=== PATIENT | female | born 1965 | race Caucasian/White ===

== ENCOUNTER → 2017-04-02 | Outpatient (CLI) | payer MEDICARE ==
--- NOTE | 2017-04-02 16:58 | RADIOLOGY REPORT (SQ) ---
EXAM DESCRIPTION: KNEE LEFT 3 VIEWS COMPLETED DATE/TIME: 04/02/2017 4:49 pm REASON FOR STUDY: PAIN IN LEFT KNEE M25.511 PAIN IN RIGHT SHOULDER M54.5 LOW BACK PAIN M25.562 PA IN IN LEFT KNEE COMPARISON: None. NUMBER OF VIEWS: Three views. TECHNIQUE: AP, lateral, and sunrise patella radiographic images acquired of the left knee. LIMITATIONS: None. FINDINGS: MINERALIZATION: Normal. BONES: No acute fracture or dislocation. No worrisome bone lesions. No significant osteophytes. JOINT: No effusion. No chondrocalcinosis. OTHER: No other significant finding. IMPRESSION: NEGATIVE STUDY OF THE LEFT KNEE. NO EXPLANATION FOR PAIN. TECHNICAL DOCUMENTATION: JOB ID: [id number] [employer]- All Rights Reserved
--- NOTE | 2017-04-02 16:58 | RADIOLOGY REPORT (SQ) ---
EXAM DESCRIPTION: KNEE RIGHT 3 VIEWS COMPLETED DATE/TIME: 04/02/2017 4:49 pm REASON FOR STUDY: PAIN IN RIGHT KNEE M25.511 PAIN IN RIGHT SHOULDER M54.5 LOW BACK PAIN M25.562 P AIN IN LEFT KNEE COMPARISON: None. NUMBER OF VIEWS: Three views. TECHNIQUE: AP, lateral, and sunrise patella radiographic images acquired of the right knee. LIMITATIONS: None. FINDINGS: MINERALIZATION: Normal. BONES: No acute fracture or dislocation. No worrisome bone lesions. No significant osteophytes. JOINT: No effusion. No chondrocalcinosis. OTHER: No other significant finding. IMPRESSION: NEGATIVE STUDY OF THE RIGHT KNEE. NO EXPLANATION FOR PAIN. TECHNICAL DOCUMENTATION: JOB ID: [id number] [employer]- All Rights Reserved
--- NOTE | 2017-04-02 16:59 | RADIOLOGY REPORT (SQ) ---
EXAM DESCRIPTION: LUMBAR SPINE COMPLETE COMPLETED DATE/TIME: 04/02/2017 4:49 pm REASON FOR STUDY: LOW BACK PAIN M25.511 PAIN IN RIGHT SHOULDER M54.5 LOW BACK PAIN M25.562 PAIN I N LEFT KNEE COMPARISON: 12/17/2013. NUMBER OF VIEWS: Five views including obliques. TECHNIQUE: AP, lateral, oblique, and sacral radiographic images acquired of the lumbar spine. LIMITATIONS: None. FINDINGS: MINERALIZATION: Normal. SEGMENTATION: Normal. No transitional anatomy. ALIGNMENT: Normal. VERTEBRAE: Maintained height. No fracture or worrisome bone lesion. DISCS: Preserved height. No significant osteophytes or end plate irregularity. POSTERIOR ELEMENTS: Pedicles and facets are intact. No pars defect or posterior arch defects. HARDWARE: None in the spine. PARASPINAL SOFT TISSUES: Normal. PELVIS: Intact as visualized. No fractures or worrisome bone lesions. SI joints intact. OTHER: No other significant finding. IMPRESSION: NORMAL 5 VIEW LUMBAR SPINE. TECHNICAL DOCUMENTATION: JOB ID: [id number] [employer]- All Rights Reserved
--- NOTE | 2017-04-02 17:00 | RADIOLOGY REPORT (SQ) ---
EXAM DESCRIPTION: SHOULDER RIGHT 2 OR MORE VIEWS COMPLETED DATE/TIME: 04/02/2017 4:49 pm REASON FOR STUDY: PAIN IN RIGHT SHOULDER M25.511 PAIN IN RIGHT SHOULDER M54.5 LOW BACK PAIN M25.56 2 PAIN IN LEFT KNEE COMPARISON: None. NUMBER OF VIEWS: Three views. TECHNIQUE: Internal rotation, external rotation, and Y view images acquired of the right shoulder. LIMITATIONS: None. FINDINGS: MINERALIZATION: Normal. BONES: No acute fracture or dislocation. No worrisome bone lesions. No significant osteophytes. GLENOHUMERAL JOINT: No significant findings. ACROMIOCLAVICULAR JOINT: No large osteophytes. SOFT TISSUES: No calcifications. VISUALIZED RIBS, SPINE, AND LUNG: No other significant finding. OTHER: No other significant finding. IMPRESSION: NEGATIVE STUDY OF THE RIGHT SHOULDER. NO EXPLANATION FOR PAIN. TECHNICAL DOCUMENTATION: JOB ID: [id number] [employer]- All Rights Reserved
== END ==
LOC: OD 15:15
PROVIDERS: ATTEND Nurse Practitioner
DX: M25.511 Pain in right shoulder (principal); M54.5 Low back pain; M25.562 Pain in left knee; M25.561 Pain in right knee
CPT/HCPCS: 72110

== ENCOUNTER 2020-04-27 18:46 | Inpatient (IN) | payer MEDICARE, MEDICAID ==
[2020-04-27] MEDS ORDERED: CLINDAMYCIN 900 MG/D5W RTU 900 MG/50 ML RTUPB IV ONE (21:40)
--- NOTE | 2020-04-27 21:45 | ER Document Report ---
ED Extremity Problem, Lower - General Chief Complaint: Skin Problem Stated Complaint: FALL/LEG PAIN Time Seen by Provider: 04/27/20 21:30 Primary Care Provider: JAQUAN AGARWAL DO [Primary Care Provider] - Follow up as needed Mode of Arrival: Wheelchair Information source: Patient Notes: Patient is a 55-year-old female comes emergency room complaining of right lower extremity pain. Patient states this past Friday she fell in the morning about 730 by tripping. She has had some difficulty walking since then but seemed to get along okay until about Friday when the foot started to swell and she noticed redness and warmth to the lower extremity. She attempted to get in to see Dr. Agarwal but he was not in that day. Patient thought that it would get better on its own but instead is only gotten worse. 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 Patient states that the swelling is gotten worse also over the past 24 hours. She denies any shortness of breath nausea or vomiting. Physical exam: Patient is a well-nourished well-developed morbidly obese 55-year-old female no apparent distress on examination however she is uncomfortable appearing and in obvious pain. Cardiac: Patient displays tachycardic rate with no murmurs. Rates approximately 104 bpm. Lungs: Bilateral breath sounds decreased throughout no rhonchi rales or wheeze noted. Lower extremities right lower extremity examination shows to be moderately swollen as compared to the left on visualization. Further evaluation shows it to be extremely red warm to touch with pain and discomfort on the dorsum of the foot and then the lateral medial malleoli are areas as well as the posterior gastroc. It appears to be circumferentially swollen. The redness and erythema is also circumferential. She does display good pulses on the area. Good cap refill in nailbeds of the toes on the right foot. Patient has difficult time with bearing weight on the right side. There is no sign of a deformity on visualization. I have greeted and performed a rapid initial assessment of this patient. A comprehensive ED assessment and evaluation of the patient, analysis of test results and completion of the medical decision making process will be conducted by additional ED providers. Dictation of this chart was performed using voice recognition software; therefore, there may be some unintended grammatical errors. TRAVEL OUTSIDE OF THE [place] IN LAST 30 DAYS: No - Related Data Allergies/Adverse Reactions: No Known Allergies Allergy (Verified 12/22/14 13:58) Past Medical History - Social History Smoking Status: Never Smoker Family History: None Patient has homicidal ideation: No - Past Medical History Cardiac Medical History: Reports: Hx Hypertension Denies: Hx Coronary Artery Disease, Hx Heart Attack Pulmonary Medical History: Reports: Hx Bronchitis, Hx Pneumonia Denies: Hx Asthma, Hx COPD Neurological Medical History: Denies: Hx Cerebrovascular Accident, Hx Seizures Musculoskeletal Medical History: Denies Hx Arthritis Psychiatric Medical History: Reports: Hx Depression Past Surgical History: Reports: Hx Section, Hx Cholecystectomy. Denies: Hx Hysterectomy - Immunizations Hx Diphtheria, Pertussis, Tetanus Vaccination: No - unsure Hx Pneumococcal Vaccination: 06/21/14 Physical Exam - Vital signs Vitals: Temp Pulse Resp BP Pulse Ox 98.0 F 102 H 20 150/87 H 99 04/27/20 18:51 04/27/20 18:51 04/27/20 18:51 04/27/20 18:51 04/27/20 18:51 Course - Vital Signs Vital signs: Temp Pulse Resp BP Pulse Ox 98.0 F 102 H 20 150/87 H 99 04/27/20 18:51 04/27/20 18:51 04/27/20 18:51 04/27/20 18:51 04/27/20 18:51 Discharge - Discharge Referrals: JAQUAN AGARWAL DO [Primary Care Provider] - Follow up as needed
--- NOTE | 2020-04-27 21:47 | ER Document Report ---
ED Medical Screen (RME) - General Chief Complaint: Skin Problem Stated Complaint: FALL/LEG PAIN Time Seen by Provider: 04/27/20 21:30 Primary Care Provider: JAQUAN AGARWAL DO [Primary Care Provider] - Follow up as needed Notes: Patient is a 55-year-old female comes emergency room complaining of right lower extremity pain. Patient states this past Friday she fell in the morning about 730 by tripping. She has had some difficulty walking since then but seemed to get along okay until about Friday when the foot started to swell and she noticed redness and warmth to the lower extremity. She attempted to get in to see Dr. Agarwal but he was not in that day. Patient thought that it would get better on its own but instead is only gotten worse. 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 Patient states that the swelling is gotten worse also over the past 24 hours. She denies any shortness of breath nausea or vomiting. Physical exam: Patient is a well-nourished well-developed morbidly obese 55-year-old female no apparent distress on examination however she is uncomfortable appearing and in obvious pain. Cardiac: Patient displays tachycardic rate with no murmurs. Rates approximately 104 bpm. Lungs: Bilateral breath sounds decreased throughout no rhonchi rales or wheeze noted. Lower extremities right lower extremity examination shows to be moderately swollen as compared to the left on visualization. Further evaluation shows it to be extremely red warm to touch with pain and discomfort on the dorsum of the foot and then the lateral medial malleoli are areas as well as the posterior gastroc. It appears to be circumferentially swollen. The redness and erythema is also circumferential. She does display good pulses on the area. Good cap refill in nailbeds of the toes on the right foot. Patient has difficult time with bearing weight on the right side. There is no sign of a deformity on visualization. I have greeted and performed a rapid initial assessment of this patient. A comprehensive ED assessment and evaluation of the patient, analysis of test results and completion of the medical decision making process will be conducted by additional ED providers. Dictation of this chart was performed using voice recognition software; therefore, there may be some unintended grammatical errors . TRAVEL OUTSIDE OF THE [place] IN LAST 30 DAYS: No - Related Data Allergies/Adverse Reactions: No Known Allergies Allergy (Verified 12/22/14 13:58) Past Medical History - Past Medical History Cardiac Medical History: Reports: Hx Hypertension Denies: Hx Coronary Artery Disease, Hx Heart Attack Pulmonary Medical History: Reports: Hx Bronchitis, Hx Pneumonia Denies: Hx Asthma, Hx COPD Neurological Medical History: Denies: Hx Cerebrovascular Accident, Hx Seizures Musculoskeltal Medical History: Denies Hx Arthritis Psychiatric Medical History: Reports: Hx Depression Past Surgical History: Reports: Hx Section, Hx Cholecystectomy. Denies: Hx Hysterectomy - Immunizations Hx Diphtheria, Pertussis, Tetanus Vaccination: No - unsure Physical Exam - Vital signs Vitals: Temp Pulse Resp BP Pulse Ox 98.0 F 102 H 20 150/87 H 99 04/27/20 18:51 04/27/20 18:51 04/27/20 18:51 04/27/20 18:51 04/27/20 18:51 Course - Vital Signs Vital signs: Temp Pulse Resp BP Pulse Ox 98.0 F 102 H 20 150/87 H 99 04/27/20 18:51 04/27/20 18:51 04/27/20 18:51 04/27/20 18:51 04/27/20 18:51 Doctor's Discharge - Discharge Referrals: JAQUAN AGARWAL DO [Primary Care Provider] - Follow up as needed
--- NOTE | 2020-04-27 22:32 | RADIOLOGY REPORT (SQ) ---
EXAM DESCRIPTION: XR ANKLE 3 OR MORE VIEWS COMPLETED DATE/TME: 04/27/2020 21:39 CLINICAL HISTORY: 55 years, Female, Fall COMPARISON: None. NUMBER OF VIEWS: 3 TECHNIQUE: 3 views right ankle LIMITATIONS: None. FINDINGS: Diffuse soft tissue swelling. Negative for acute fracture or dislocation. Calcaneal spurs. Ankle mortise is intact IMPRESSION: No acute osseous abnormality. copyright 2010 [employer]- All Rights Reserved
--- NOTE | 2020-04-27 22:33 | RADIOLOGY REPORT (SQ) ---
EXAM DESCRIPTION: XR TIBIA FIBULA 2 VIEWS COMPLETED DATE/TME: 04/27/2020 21:39 CLINICAL HISTORY: 55 years, Female, Fall COMPARISON: None. NUMBER OF VIEWS: 2 TECHNIQUE: 2 views right tibia-fibula LIMITATIONS: None. FINDINGS: Osteopenia. Negative for acute fracture or dislocation. IMPRESSION: No acute osseous abnormality copyright 2010 [employer]- All Rights Reserved
--- NOTE | 2020-04-27 22:46 | RADIOLOGY REPORT (SQ) ---
EXAM DESCRIPTION: XR FOOT 3 OR MORE VIEWS COMPLETED DATE/TME: 04/27/2020 21:38 CLINICAL HISTORY: 55 years ,Female fall/swelling COMPARISON: None. TECHNIQUE: RIGHT foot, Three view FINDINGS: No acute fractures or dislocations are identified. No osseous destructive lesions. No radiopaque foreign object noted. No significant ankle effusion noted. Soft tissue swelling over the forefoot. IMPRESSION: No acute fracture or dislocation is identified. Soft tissue swelling over the forefoot
--- NOTE | 2020-04-27 23:17 | RADIOLOGY REPORT (SQ) ---
EXAM DESCRIPTION: US EXTREMITY VEINS UNILATERAL COMPLETED DATE/TME: 04/27/2020 21:37 CLINICAL HISTORY: Swelling/positive Homans COMPARISON: None. TECHNIQUE: Grayscale, color Doppler, and spectral Doppler imaging of the right lower extremity venous system. Suboptimal evaluation due to body habitus and edema. FINDINGS: Normal compressibility and flow identified in the right common femoral, superficial femoral, popliteal, and visualized calf veins. No echogenic thrombus identified. Mild subcutaneous edema. Respiratory phasicity in the common femoral veins. IMPRESSION: No evidence of right lower extremity DVT.
[2020-04-28 00:37] LABS: ABSOLUTE BASOPHILS # (AUTO) 0.1 10^3/uL (0.0-0.2); ABSOLUTE EOSINOPHILS # (AUTO) 0.1 10^3/uL (0.0-0.6); ABSOLUTE LYMPHOCYTES (AUTO) 1.8 10^3/uL (0.5-4.7); ABSOLUTE MONOCYTES (AUTO) 0.8 10^3/uL (0.1-1.4); ABSOLUTE NEUT (AUTO) 7.2 10^3/uL (1.7-8.2); BASOPHILS % (AUTO) 0.6 % (0-2); EOSINOPHILS % (AUTO) 0.6 % (0-6); HEMATOCRIT 41.4 % (36.0-47.0); HEMOGLOBIN 14.3 g/dL (12.0-15.5); LYMPHOCYTES % (AUTO) 18.4 % (13-45); MEAN CORPUSCULAR HEMOGLOBIN 31.7 pg (27.0-33.4); MEAN CORPUSCULAR HGB CONC 34.6 g/dL (32.0-36.0); MEAN CORPUSCULAR VOLUME 92 fl (80-97); MONOCYTES % (AUTO) 8.3 % (3-13); PLATELET COUNT 327 10^3/uL (150-450); RED BLOOD COUNT 4.52 10^6/uL (3.72-5.28); RED CELL DISTRIBUTION WIDTH 14.7 % (11.5-14.0); SEGMENTED NEUTROPHILS % (AUTO) 72.1 % (42-78); TOTAL CELLS COUNTED % (AUTO) 100 %
[2020-04-28 00:47] LABS: ALBUMIN 4.2 g/dL (3.5-5.0); ALKALINE PHOSPHATASE 129 U/L (38-126); ANION GAP 19 (5-19); ASPARTATE AMINO TRANSFERASE 38 U/L (14-36); BILIRUBIN,DIRECT 0.1 mg/dL (0.0-0.4); BILIRUBIN,TOTAL 1.5 mg/dL (0.2-1.3); BLOOD UREA NITROGEN 9 mg/dL (7-20); CALCIUM 9.7 mg/dL (8.4-10.2); CARBON DIOXIDE 17 mmol/L (22-30); CHLORIDE 101 mmol/L (98-107); GLUCOSE 204 mg/dL (75-110); POTASSIUM 3.4 mmol/L (3.6-5.0); TOTAL PROTEIN 7.4 g/dL (6.3-8.2)
[2020-04-28] MEDS ORDERED: NORMAL SALINE 1000 ML 1,000 ML IV ONE (02:55)
[2020-04-28] MEDS ORDERED: IBUPROFEN 800 MG TABLET PO ONE (02:56)
--- NOTE | 2020-04-28 03:01 | ER Document Report ---
ED Extremity Problem, Lower - General Chief Complaint: Skin Problem Stated Complaint: FALL/LEG PAIN Time Seen by Provider: 04/27/20 21:30 Notes: Patient is a 55-year-old female that comes emergency department for chief complaint of right lower leg pain. She states that about 6 days ago she fell on her right side because of tripping, she had bruising along the side of her leg and pain afterwards, however approximately 3 days ago she started having increased swelling, redness, and pain to her right foot and right leg near the ankle. She states that this has worsened and now has developed into what looks like cellulitis, she has had cellulitis several times in the past. She states that she did have Keflex called in for her by Primary Care and she has been taking it for the past 2 to 3 days. She states she had some sweating earlier a nd thought maybe she had a fever. Her temperature was reportedly 38 C (100.4 F). She does have a history of diabetes, obesity, neuropathy. TRAVEL OUTSIDE OF THE [place] IN LAST 30 DAYS: No - Related Data Allergies/Adverse Reactions: No Known Allergies Allergy (Verified 12/22/14 13:58) Past Medical History - General Information source: Patient - Social History Smoking Status: Never Smoker Drug Abuse: None Lives with: Family Family History: None Patient has homicidal ideation: No - Past Medical History Cardiac Medical History: Reports: Hx Hypertension Denies: Hx Coronary Artery Disease, Hx Heart Attack Pulmonary Medical History: Reports: Hx Bronchitis, Hx Pneumonia Denies: Hx Asthma, Hx COPD Neurological Medical History: Denies: Hx Cerebrovascular Accident, Hx Seizures Endocrine Medical History: Reports: Hx Diabetes Mellitus Type 2 Musculoskeletal Medical History: Denies Hx Arthritis Psychiatric Medical History: Reports: Hx Depression Past Surgical History: Reports: Hx Section, Hx Cholecystectomy. Denies: Hx Hysterectomy - Immunizations Immunizations up to date: Yes Hx Diphtheria, Pertussis, Tetanus Vaccination: Yes Hx Pneumococcal Vaccination: 06/21/14 Review of Systems - Review of Systems Constitutional: See HPI EENT: No symptoms reported Cardiovascular: No symptoms reported Respiratory: No symptoms reported Gastrointestinal: No symptoms reported Genitourinary: No symptoms reported Female Genitourinary: No symptoms reported Musculoskeletal: See HPI Skin: See HPI Hematologic/Lymphatic: No symptoms reported Neurological/Psychological: No symptoms reported Physical Exam - Vital signs Vitals: Temp Pulse Resp BP Pulse Ox 98.0 F 102 H 20 150/87 H 99 04/27/20 18:51 04/27/20 18:51 04/27/20 18:51 04/27/20 18:51 04/27/20 18:51 - Notes Notes: GENERAL: Alert, interacts well. No acute distress. HEAD: Normocephalic, atraumatic. EYES: Pupils equal, round, and reactive to light. Extraocular movements intact. ENT: Oral mucosa dry, tongue midline. Oropharynx unremarkable. Airway patent. NECK: Full range of motion. Supple. Trachea midline. No lymphadenopathy. LUNGS: Clear to auscultation bilaterally, no wheezes, rales, or rhonchi. No respiratory distress. Non-tender chest wall. HEART: Regular rate and rhythm. No murmur ABDOMEN: Soft, non-tender. Non-distended. EXTREMITIES: Ecchymosis over the right mid to distal thigh laterally. Soft tissue swelling of the distal leg and ankle extending to the top of the foot with erythema that is circumferential and patchy erythematous areas above this on the distal leg. Increased tenderness and warmth noted. Capillary refill and sensation are intact. BACK: no cervical, thoracic, lumbar midline tenderness. No saddle anesthesia, normal distal neurovascular exam. Moves all extremities in full range of motion. NEUROLOGICAL: Alert and oriented x3. Normal speech. Cranial nerves II through XII grossly intact. Strength 5/5 in all extremities. PSYCH: Intermittently anxious SKIN: Warm, dry, normal turgor. No rashes or lesions noted. Course - Re-evaluation Re-evalutation: Patient with ecchymosis along the lateral aspect of the right leg. There is sw elling, erythema, warmth, tenderness to the right foot and lower leg. Part of this appears to almost be a vasculitis versus posttraumatic but there also appears to be a significant cellulitis component. Patient has a reported fever at home but no fever here. She was borderline tachycardic but is not significantly tachycardic on my exam. She is not toxic in appearance. CBC unremarkable, chemistry nonspecific with some acidosis and elevated glucose but normal anion gap. IV fluids will be given. Lactic acid is not elevated. X-rays and venous Doppler ultrasound from triage reviewed and unremarkable except for soft tissue swelling. We had a large amount of difficulty obtaining IV access, patient was stuck multiple times. I attempted with an ultrasound, the first 1 rapidly infiltrated, the second 1 was good with excellent flush and blood is easily obtained from this. Antibiotics were significantly delayed but finally started. I discussed with patient. Patient initially discussing going home, however patient attempted to ambulate and was able not able to do so because of signi ficant pain. Patient is now uncomfortable going home. Patient does have reported failure with outpatient antibiotic (Keflex), obesity, recent travel, probable hematoma in the right leg, and insulin-dependent type 2 diabetes. Will discuss with hospitalist for admission. Discussed with Dr. Martin, hospitalist, patient will be accepted to medical floor full admission, he will tell the next provider/hospitalist about them because of the current time on the phone. - Vital Signs Vital signs: Temp Pulse Resp BP Pulse Ox 98.0 F 100 20 116/55 L 99 04/28/20 04:46 04/28/20 04:46 04/28/20 04:46 04/28/20 04:46 04/28/20 04:46 - Laboratory Result Diagrams: 04/28/20 00:07 04/28/20 00:07 Laboratory results interpreted by me: 04/28/20 04/28/20 00:07 00:07 RDW 14.7 H Sodium 136.5 L Potassium 3.4 L Carbon Dioxide 17 L Creatinine 0.48 L Glucose 204 H Total Bilirubin 1.5 H AST 38 H Alkaline Phosphatase 129 H Discharge - Discharge Clinical Impression: Right leg swelling Cellulitis Qualifiers: Site of cellulitis: extremity Site of cellulitis of extremity: lower extremity Laterality: right Qualified Code(s): L03.115 - Cellulitis of right lower limb Condition: Stable Disposition: ADMITTED INPATIENT Admitting Provider: Mario (Hospitalist) Unit Admitted: Medical Floor
[2020-04-28] MEDS ORDERED: CLINDAMYCIN 900 MG/D5W RTU 900 MG/50 ML RTUPB IV ONE (03:45)
[2020-04-28] MEDS ORDERED: VANCOMYCIN HCL INJ 1000 MG VIAL IV ONE (05:19)
[2020-04-28] MEDS ORDERED: CEFEPIME 2 GM/D5W RTU 2 GM/50 ML RTUPB IV ONE (05:19)
[2020-04-28] MEDS ORDERED: MAG HYDROX/AL HYDROX/SIMETH SUSP 30 ML UDCUP PO PRN (06:19)
[2020-04-28] MEDS ORDERED: ONDANSETRON HCL INJ/PF 4 MG/2 ML SDV IV PRN (06:19)
[2020-04-28] MEDS ORDERED: MORPHINE SULFATE 10 MG/ML INJ IV PRN (06:24)
[2020-04-28] MEDS ORDERED: ACETAMINOPHEN 325 MG TABLET PO PRN (06:24)
[2020-04-28] MEDS ORDERED: LORAZEPAM INJ 2 MG/1 ML VIAL IV PRN (06:24)
[2020-04-28] MEDS ORDERED: MELATONIN 5 MG TABLET PO PRN (06:24)
[2020-04-28] MEDS ORDERED: HYDRALAZINE HCL INJ/PF 20 MG/1 ML SDV IV PRN (06:24)
[2020-04-28] MEDS ORDERED: NICOTINE 21 MG/24 HR PATCH.TD24 TD PRN (06:24)
[2020-04-28] MEDS ORDERED: METOPROLOL TARTRATE PF/INJ 5 MG/5 ML SDV IV PRN (06:24)
[2020-04-28] MEDS ORDERED: GUAIFENESIN SYRP 200 MG/10 ML UDC PO PRN (06:24)
[2020-04-28] MEDS ORDERED: DEXTROSE 50%-WATER 25 GM/50 ML DISP.SYRIN IV PRN ×2 (06:25)
[2020-04-28] MEDS ORDERED: GLUCAGON,HUMAN RECOMB 1 MG INJ IM PRN (06:25)
[2020-04-28] MEDS ORDERED: DEXTROSE 40% GEL 15 GM TUBE PO PRN ×2 (06:25)
[2020-04-28] MEDS ORDERED: LEVALBUTEROL HCL NEB 0.63 MG/3 ML AMPUL NEB PRN (06:26)
[2020-04-28] MEDS ORDERED: VANCOMYCIN HCL INJ 1000 MG VIAL IV SCH (06:30)
--- NOTE | 2020-04-28 06:47 | PDOC H&P ---
History of Present Illness Admission Date/PCP: 04/28/2020 06:30 JAQUAN COOPER DO Patient complains of: Right lower extremity pain History of Present Illness: EDEN CM is a 55 year old female who presented the emergency room with a one-week history of pain in her right lower extremity. She experienced a fall after tripping and bruised the right side of her leg 1 week ago. 3 days later she noted redness and swelling with pain to touch involving her right ankle, worsened by movement of her right lower leg and foot. The redness and swelling have continued to increase over the last 3 days and have become more painful. She was treated with oral Keflex by her primary care provider without improvement. Her right lower extremity pain has been accompanied by a low-grade fever at home and has been associated with episodic diaphoresis. She admits prior similar episodes. She has not identified any additional aggravating or ameliorating factors for her pain. In the emergency room she was found to have an essentially unremarkable laboratory evaluation however clinically she showed evidence of cellulitis and she is unable to bear weight on her right lower extremity and has no one to help her at home. Patient was subsequently admitted to the hospital for further evaluation and treatment. Past Medical History Cardiac Medical History: Reports: Hypertension Denies: Coronary Artery Disease, Myocardial Infarction Pulmonary Medical History: Reports: Asthma, Bronchitis, Pneumonia, Sleep Apnea - Obstructive sleep apnea Denies: Chronic Obstructive Pulmonary Disease (COPD) EENT Medical History: Reports: Nose - Allergic rhinitis Denies: Cataracts, Ears - Hearing aids Neurological Medical History: Denies: Hemorrhagic CVA, Ischemic CVA, Seizures Endocrine Medical History: Reports: Diabetes Mellitus Type 2, Hypothyroidism, Obesity Denies: Diabetes Mellitus Type 1, Hyperthyroidism Renal/ Medical History: Reports: Other - Polycystic ovarian syndrome Denies: Chronic Kidney Disease, Nephrolithiasis Malignancy Medical History: Reports: None GI Medical History: Denies: Cirrhosis, Hepatitis, Peptic Ulcer Disease Musculoskeltal Medical History: Denies: Arthritis, Gout Skin Medical History: Reports: Other - Frequent cellulitis of the lower extremities Denies: Eczema, Psoriasis Psychiatric Medical History: Reports: Depression Denies: Alcohol Dependency, Substance Abuse, Tobacco Dependency Traumatic Medical History: Reports: None Hematology: Reports: Anemia - Chronic Denies: Bleeding Tendencies Infectious Medical History: Reports: None Past Surgical History Past Surgical History: Reports: Section, Cholecystectomy Social History Information Source: Patient Lives with: Alone Smoking Status: Never Smoker Electronic Cigarette use?: No Frequency of Alcohol Use: None Hx Recreational Drug Use: No Drugs: None Hx Prescription Drug Abuse: No - Advance Directive Resuscitation Status: Full Code Surrogate healthcare decision maker:: Sourav Garcia Family History Family History: CVA, DM, Hypertension, Other - Asthma Parental Family History Reviewed: Yes Children Family History Reviewed: No Sibling(s) Family History Reviewed.: Yes Medication/Allergy Home Medications: Albuterol Sulfate [Albuterol Sulfate 2.5mg/3 mL] 1 vial IH PRN PRN 07/14/14 Esomeprazole Magnesium [Nexium] 40 mg PO DAILY 07/14/14 Fluticasone/Salmeterol [Advair 250-50 Diskus 14 Dose/Diskus] 1 inh IH DAILY 07/14/14 Amlodipine Besylate [Norvasc 10 mg Tablet] 10 mg PO DAILY 12/22/14 Bupropion HCl [Wellbutrin] 100 mg PO TID 12/22/14 Levothyroxine Sodium [Synthroid 0.025 mg Tablet] 25 mcg PO DAILY 12/22/14 Losartan/Hydrochlorothiazide [Hyzaar 100-25 Tablet] 1 each PO DAILY 12/22/14 Magnesium Hydroxide [Milk Of Magnesia] 1,200 mg PO BID #10 ml 01/07/15 Polyethylene Glycol 3350 [Miralax Powder 17 gm/Packet] 1 packet PO DAILY #7 pkg 01/07/15 Allergies/Adverse Reactions: No Known Allergies Allergy (Verified 12/22/14 13:58) Review of Systems Constitutional: PRESENT: as per HPI, fever(s). ABSENT: chills Eyes: ABSENT: visual disturbances, other - Eye pain Ears: ABSENT: hearing changes, other - Ear pain Nose, Mouth, and Throat: ABSENT: headache(s), sore throat Cardiovascular: ABSENT: chest pain, palpitations Respiratory: ABSENT: cough, dyspnea Gastrointestinal: ABSENT: abdominal pain, constipation, diarrhea, nausea, vomiting Genitourinary: ABSENT: dysuria, hematuria Musculoskeletal: ABSENT: back pain, joint swelling Integumentary: PRESENT: as per HPI, diaphoresis, erythema. ABSENT: pruritus, rash Neurological: ABSENT: confusion, convulsions, focal weakness, memory loss, syncope Psychiatric: ABSENT: anxiety, depression Endocrine: ABSENT: cold intolerance, heat intolerance Hematologic/Lymphatic: ABSENT: easy bleeding, easy bruising Allergic/Immunologic: ABSENT: seasonal rhinorrhea Physical Exam Vital Signs: Temp Pulse Resp BP Pulse Ox 98.0 F 100 20 116/55 L 99 04/28/20 04:46 04/28/20 04:46 04/28/20 04:46 04/28/20 04:46 04/28/20 04:46 Intake & Output 04/26/20 04/27/20 04/28/20 23:59 23:59 23:59 Weight 148.6 kg General appearance: PRESENT: cooperative, mild distress - Secondary to right lower extremity pain, morbidly obese Head exam: PRESENT: atraumatic, normocephalic Eye exam: PRESENT: conjunctiva pink. ABSENT: conjunctival injection, scleral icterus Ear exam: PRESENT: normal external ear exam. ABSENT: bleeding, drainage Mouth exam: PRESENT: dry mucosa, neck supple Neck exam: ABSENT: thyromegaly, tracheal deviation Respiratory exam: PRESENT: clear to auscultation nathaly, symmetrical, unlabored Cardiovascular exam: PRESENT: RRR. ABSENT: clicks, gallop, rubs Pulses: PRESENT: normal radial pulses, normal dorsalis pedis pul Vascular exam: PRESENT: normal capillary refill. ABSENT: pallor GI/Abdominal exam: PRESENT: normal bowel sounds, soft Rectal exam: PRESENT: deferred Extremities exam: PRESENT: tenderness - Erythema and edema with tenderness on palpation and increased warmth to touch of the right ankle extension to the foot and distal lower leg.. ABSENT: joint swelling, pedal edema Musculoskeletal exam: ABSENT: ambulatory - Secondary to pain, deformity, dislocation Neurological exam: PRESENT: alert, oriented to person, oriented to place, oriented to time, oriented to situation, CN II-XII grossly intact. ABSENT: motor sensory deficit Psychiatric exam: PRESENT: appropriate affect, normal mood Skin exam: PRESENT: dry, intact, warm, other - Erythema and edema with tenderness on palpation and increased warmth to touch of the right ankle extension to the foot and distal lower leg.. ABSENT: jaundice, rash, urticaria Results Laboratory Results: 04/28/20 00:07 04/28/20 00:07 04/28/20 04/28/20 04/28/20 00:07 00:07 00:07 WBC 10.0 RBC 4.52 Hgb 14.3 Hct 41.4 MCV 92 MCH 31.7 MCHC 34.6 RDW 14.7 H Plt Count 327 Seg Neutrophils % 72.1 Sodium 136.5 L Potassium 3.4 L Chloride 101 Carbon Dioxide 17 L Anion Gap 19 BUN 9 Creatinine 0.48 L Est GFR ( Amer) > 60 Glucose 204 H Lactic Acid 1.3 Calcium 9.7 Total Bilirubin 1.5 H AST 38 H Alkaline Phosphatase 129 H Total Protein 7.4 Albumin 4.2 Impressions: Venous Doppler Study 04/27/20 21:37 IMPRESSION: No evidence of right lower extremity DVT. Foot X-Ray 04/27/20 21:38 IMPRESSION: No acute fracture or dislocation is identified. Soft tissue swelling over the forefoot Ankle X-Ray 04/27/20 21:39 IMPRESSION: No acute osseous abnormality. copyright 2010 [facility]- All Rights Reserved Tibia/Fibula X-Ray 04/27/20 21:39 IMPRESSION: No acute osseous abnormality copyright 2010 [facility]- All Rights Reserved Assessment and Plan - Diagnosis (1) Cellulitis of right lower extremity Is this a current diagnosis for this admission?: Yes (2) Type 2 diabetes mellitus with morbid obesity Is this a current diagnosis for this admission?: Yes (3) Morbid obesity Is this a current diagnosis for this admission?: Yes (4) Hypertension Qualifiers: Hypertension type: essential hypertension Qualified Code(s): I10 - Essential (primary) hypertension Is this a current diagnosis for this admission?: Yes (5) Obstructive sleep apnea Is this a current diagnosis for this admission?: Yes - Plan Summary Summary: Patient will be admitted to the medical floor where she received routine supportive and symptomatic cares. She will be given antibiotic therapy with vancomycin and cefepime administered intravenously. She will receive morphine sulfate 2 to 4 mg IV every 2 hours as needed for pain and Ativan 1 mg IV every 4 hours as needed for anxiety or restlessness. She will be continued on her usual home medications as soon as her medication list has been verified and reconciled. Before meals and at bedtime Accu-Cheks to be performed with sliding scale insulin for hyperglycemia and a hypoglycemic protocol in place. Patient will be on a diabetic and cardiac restricted diet. - Time Time Spent with patient: 15-24 minutes Medications reviewed and adjusted accordingly: Yes Anticipated Discharge Disposition: Home with Home Health Anticipated Discharge Timeframe: within 72 hours - Inpatient Certification Based on my medical assessment, after consideration of the patient's comorbidities, presenting symptoms, or acuity I expect that the services needed warrant INPATIENT care.: Yes I certify that my determination is in accordance with my understanding of Medicare's requirements for reasonable and necessary INPATIENT services [42 CFR 412.3e].: Yes Medical Necessity: Significant Comorbidiites Make Outpatient Treatment Too Risky, Need Close Monitoring Due to Risk of Patient Decompensation, Need for Pain Control, Need for IV Antibiotics
[2020-04-28] MEDS: IPRATROPIUM BROMIDE 0.02% NEB 0.5 MG/2.5 ML AMPUL NEB SCH ×2 (08:53→16:48)
[2020-04-28] MEDS: LEVALBUTEROL HCL NEB 1.25 MG/3 ML AMPUL NEB SCH ×2 (08:53→16:49)
[2020-04-28] MEDS: BUDESONIDE NEB 0.5 MG/2 ML AMPUL NEB SCH ×2 (08:53→19:59)
--- NOTE | 2020-04-28 09:34 | PDOC PROGRESS REPORT ---
Subjective Progress Note for:: 04/28/20 Subjective:: The patient reports ongoing pain in her right leg. The calf area is more extensively involved than the ankle area. It is painful to walk. Reason For Visit: CELLULITIS RIGHT LOWER EXTREMITY Physical Exam Vital Signs: Temp Pulse Resp BP Pulse Ox 98.0 F 100 20 116/55 L 99 04/28/20 04:46 04/28/20 04:46 04/28/20 04:46 04/28/20 04:46 04/28/20 04:46 Intake & Output 04/27/20 04/28/20 04/29/20 06:59 06:59 06:59 Intake Total 50 Balance 50 Weight 148.6 kg General appearance: PRESENT: cooperative, mild distress, morbidly obese, well- developed, well-nourished Head exam: PRESENT: atraumatic, normocephalic Eye exam: PRESENT: conjunctiva pink. ABSENT: scleral icterus Ear exam: PRESENT: normal external ear exam. ABSENT: bleeding, drainage Mouth exam: PRESENT: moist, tongue midline Respiratory exam: PRESENT: clear to auscultation nathaly, symmetrical, unlabored. ABSENT: accessory muscle use, prolonged expiratory phas, rales, rhonchi, tachypnea, wheezes Cardiovascular exam: PRESENT: RRR, +S1, +S2. ABSENT: diastolic murmur, irregular rhythm, systolic murmur, tachycardia GI/Abdominal exam: PRESENT: normal bowel sounds, soft, other - Pendulous abdomen. ABSENT: guarding, tenderness Rectal exam: PRESENT: deferred Gentrourinary exam: ABSENT: indwelling catheter Extremities exam: ABSENT: pedal edema Musculoskeletal exam: ABSENT: ambulatory - Walk due to right ankle and leg pain, deformity, dislocation Neurological exam: PRESENT: alert, awake, oriented to person, oriented to place, oriented to time, oriented to situation, CN II-XII grossly intact. ABSENT: altered, motor sensory deficit Psychiatric exam: PRESENT: appropriate affect. ABSENT: agitated, anxious Focused psych exam: ABSENT: delusional, paranoid, restlessness Skin exam: PRESENT: dry, erythema - Right leg. Especially calf and ankle area., warm Results Laboratory Results: 04/28/20 00:07 04/28/20 00:07 04/28/20 04/28/20 04/28/20 00:07 00:07 00:07 WBC 10.0 RBC 4.52 Hgb 14.3 Hct 41.4 MCV 92 MCH 31.7 MCHC 34.6 RDW 14.7 H Plt Count 327 Seg Neutrophils % 72.1 Sodium 136.5 L Potassium 3.4 L Chloride 101 Carbon Dioxide 17 L Anion Gap 19 BUN 9 Creatinine 0.48 L Est GFR ( Amer) > 60 Glucose 204 H Lactic Acid 1.3 Calcium 9.7 Magnesium Total Bilirubin 1.5 H AST 38 H Alkaline Phosphatase 129 H Total Protein 7.4 Albumin 4.2 04/28/20 00:07 WBC RBC Hgb Hct MCV MCH MCHC RDW Plt Count Seg Neutrophils % Sodium Potassium Chloride Carbon Dioxide Anion Gap BUN Creatinine Est GFR ( Amer) Glucose Lactic Acid Calcium Magnesium 2.3 Total Bilirubin AST Alkaline Phosphatase Total Protein Albumin Impressions: Venous Doppler Study 04/27/20 21:37 IMPRESSION: No evidence of right lower extremity DVT. Foot X-Ray 04/27/20 21:38 IMPRESSION: No acute fracture or dislocation is identified. Soft tissue swelling over the forefoot Ankle X-Ray 04/27/20 21:39 IMPRESSION: No acute osseous abnormality. copyright 2010 [email or web address]- All Rights Reserved Tibia/Fibula X-Ray 04/27/20 21:39 IMPRESSION: No acute osseous abnormality copyright 2010 [email or web address]- All Rights Reserved Assessment and Plan - Diagnosis (1) Cellulitis of right lower extremity Is this a current diagnosis for this admission?: Yes Plan: Continue antibiotic therapy (2) Leg pain, right Is this a current diagnosis for this admission?: Yes Plan: Supportive care and analgesia (3) Hyperglycemia due to type 2 diabetes mellitus Qualifiers: Diabetes mellitus assisted insulin use: with assisted use Qualified Code(s): E11.65 - Type 2 diabetes mellitus with hyperglycemia; Z79.4 - meterman (current) use of insulin Is this a current diagnosis for this admission?: Yes Plan: The patient's normal Lantus schedule and sliding scale with Accu-Cheks. The patient is also on multiple other medications for diabetes which we will c ontinue. (4) Hypokalemia Is this a current diagnosis for this admission?: Yes Plan: Oral supplement of potassium. Monitor daily laboratory studies and supplement potassium accordingly. (5) Anxiety and depression Is this a current diagnosis for this admission?: Yes Plan: Continue current medications (6) Chronic gastroesophageal reflux disease Is this a current diagnosis for this admission?: Yes Plan: Continue proton pump inhibitor (7) Hypertension Qualifiers: Hypertension type: essential hypertension Qualified Code(s): I10 - Essential (primary) hypertension Is this a current diagnosis for this admission?: Yes Plan: Continue current regimen of antihypertensive medications (8) Hypothyroid Qualifiers: Hypothyroidism type: unspecified Qualified Code(s): E03.9 - Hypothyroidism, unspecified Is this a current diagnosis for this admission?: Yes Plan: Continue levothyroxine (9) Morbid obesity with BMI of 50.0-59.9, adult Is this a current diagnosis for this admission?: Yes Plan: Encourage weight loss. At this point aggressive diet is the only option. (10) Obstructive sleep apnea Is this a current diagnosis for this admission?: Yes Plan: CPAP if required (11) Polycystic ovarian disease Is this a current diagnosis for this admission?: Yes Plan: Stable. No acute intervention. - Plan Summary Summary: Patient will be admitted to the medical floor where she received routine suppo rtive and symptomatic cares. She will be given antibiotic therapy with vancomycin and cefepime administered intravenously. She will receive morphine sulfate 2 to 4 mg IV every 2 hours as needed for pain and Ativan 1 mg IV every 4 hours as needed for anxiety or restlessness. She will be continued on her usual home medications as soon as her medication list has been verified and reconciled. Before meals and at bedtime Accu-Cheks to be performed with sliding scale insulin for hyperglycemia and a hypoglycemic protocol in place. Patient will be on a diabetic and cardiac restricted diet. - Time Time Spent with patient: 15-24 minutes Medications reviewed and adjusted accordingly: Yes Anticipated Discharge Disposition: Home, Self Care Anticipated Discharge Timeframe: within 72 hours
[2020-04-28] MEDS ORDERED: POTASSIUM CHLORIDE 10 MEQ TABLET.ER PO ONE (10:00)
[2020-04-28] MEDS: DOCUSATE SODIUM 100 MG CAPSULE PO SCH ×2 (11:44→19:03)
[2020-04-28] MEDS: FAMOTIDINE 20 MG TABLET PO SCH ×2 (12:01→21:39)
[2020-04-28] MEDS: CEFEPIME 1 GM/D5W RTU 1 GM/50 ML RTUPB IV SCH ×2 (12:02→21:40)
[2020-04-28] MEDS: VANCOMYCIN HCL 1,250 MG in DEXTROSE 5%-WATER 250 ML IV SCH ×2 (12:56→18:56)
--- NOTE | 2020-04-28 14:08 | RADIOLOGY REPORT (SQ) ---
EXAM DESCRIPTION: PICC INSERTION IMAGES COMPLETED DATE/TIME: 04/28/2020 11:22 am REASON FOR STUDY: needs IV antibiotics with multiple infiltrated PIV COMPARISON: None. FLUOROSCOPY TIME: 0.4 MINUTES OF FLUOROSCOPY WAS USED. 2 images saved to PACS. TECHNIQUE: Fluoroscopic and ultrasound guided PICC placement. LIMITATIONS: None. PROCEDURE: After written consent and assessment were obtained, the patient was brought into the fluo roscopy room and placed supine on the table. Ultrasound evaluation of potential access sites were per formed. After successfully identifying a patent right basilic vein, the right arm was prepped and victor manuel ped in a sterile fashion along with the ultrasound probe. The entry site was anesthetized with 1% lid ocaine. A 21 gauge 7 cm needle was advanced through the skin and into the basilic vein under live ult rasound guidance. An ultrasound image was saved to PACS confirming access site. A .018 guide wire w as then inserted through the needle and into the venous system. The needle was then removed and an 11 blade scalpel was used to make a 1cm skin incision. A 5 fr peel-away sheath was advanced over the w jason and into the venous system. A measurement was then made using the existing wire and live fluorosc opic guidance. The wire was then removed and trimmed. The PICC was advanced through the peel-away she ath and into the venous system. The peel-away sheath was removed and the catheter was adhered to the patients arm with a stat lock. The catheter was then aspirated and flushed and a sterile bandage was placed over the access site. A fluoroscopic spot image was saved to PACS confirming the catheter tip within the superior vena cava. IMPRESSION: SUCCESSFUL PLACEMENT OF A 5 FR DUAL LUMEN 42 CM PICC IN THE RIGHT BASILIC VEIN. COMMENT: Patient medication list reviewed: Yes- Quality ID# [id number]:Eligible professional attests to doc umenting in the medical record they obtained, updated, or reviewed the patient's current medications. . Quality ID 145: Final reports for procedures using fluoroscopy that document radiation exposure ladonna bebeto, or exposure time and number of fluorographic images (if radiation exposure indices are not avail able) Quality ID #76: The patient was prepped and draped using maximum sterile barrier technique including cap, mask, sterile gown, sterile gloves, a large sterile sheet, hand hygiene, and 2% Chlorhexidine fo r cutaneous antisepsis. When ultrasound is used, sterile ultrasound techniques are followed requiring sterile gel and sterile probes. TECHNICAL DOCUMENTATION: JOB ID: [id number] 2010 [employer]- All Rights Reserved Reading location - IP/workstation name: [email or web address]
[2020-04-28] MEDS: INSULIN REG, HUMAN 100 UNIT/ML 3 ML VIAL (PYX) SUBCUT PRN ×2 (15:10→18:56)
[2020-04-28] MEDS: HEPARIN SOD (PORCINE) 5,000 UNIT/ML 1 ML VIAL SUBCUT SCH ×2 (15:10→21:41)
[2020-04-28] MEDS ORDERED: HYDROCODONE/ACETAMINOPHEN 10-325 MG TABLET PO PRN (15:53)
[2020-04-28] MEDS: METFORMIN HCL 500 MG TABLET PO SCH (17:11)
[2020-04-28] MEDS ORDERED: ALPRAZOLAM 0.5 MG TABLET PO PRN (17:21)
[2020-04-28] MEDS ORDERED: (PENDING PHARMACY ID) (Naproxen [Naprosyn] 500 MG) PO SCH (18:00)
[2020-04-28] MEDS: NAPROXEN 250 MG TABLET PO SCH (18:00)
[2020-04-28] MEDS: GABAPENTIN 300 MG CAPSULE PO SCH (21:39)
[2020-04-28] MEDS: CLOTRIMAZOLE 1% CREAM 15 GM TOP SCH (21:40)
[2020-04-28] MEDS: TRIAMCINOLONE ACETONIDE 0.1% CREAM 15 GM TOP SCH (21:41)
[2020-04-28] MEDS: INSULIN GLARGINE,HUM.REC.ANLOG 1,000 UNIT/10 ML VIAL SUBCUT SCH (21:49)
[2020-04-28] MEDS ORDERED: (PENDING PHARMACY ID) (Prazosin Hcl [Minipress] 2 MG) PO SCH (22:00)
[2020-04-29] MEDS: LEVALBUTEROL HCL NEB 1.25 MG/3 ML AMPUL NEB SCH ×2 (00:09→08:48)
[2020-04-29] MEDS: IPRATROPIUM BROMIDE 0.02% NEB 0.5 MG/2.5 ML AMPUL NEB SCH ×2 (00:09→08:48)
[2020-04-29] MEDS: VANCOMYCIN HCL 1,250 MG in DEXTROSE 5%-WATER 250 ML IV SCH ×3 (03:43→18:46)
[2020-04-29] MEDS: LEVOTHYROXINE SODIUM 0.088 MG TABLET PO SCH (05:56)
[2020-04-29] MEDS: HEPARIN SOD (PORCINE) 5,000 UNIT/ML 1 ML VIAL SUBCUT SCH ×3 (05:56→21:54)
[2020-04-29] MEDS: PANTOPRAZOLE SODIUM 40 MG TABLET.DR PO SCH (05:56)
[2020-04-29] MEDS: GABAPENTIN 300 MG CAPSULE PO SCH ×3 (05:56→21:54)
[2020-04-29 06:50] LABS: HEMATOCRIT 32.8 % (36.0-47.0); MEAN CORPUSCULAR HEMOGLOBIN 32.2 pg (27.0-33.4); MEAN CORPUSCULAR HGB CONC 35.1 g/dL (32.0-36.0); MEAN CORPUSCULAR VOLUME 92 fl (80-97); PLATELET COUNT 266 10^3/uL (150-450); RED BLOOD COUNT 3.58 10^6/uL (3.72-5.28); RED CELL DISTRIBUTION WIDTH 14.7 % (11.5-14.0); WHITE BLOOD COUNT 6.8 10^3/uL (4.0-10.5)
[2020-04-29 06:55] LABS: HEMOGLOBIN 11.5 g/dL (12.0-15.5)
[2020-04-29 07:15] LABS: ANION GAP 10 (5-19); BLOOD UREA NITROGEN 6 mg/dL (7-20); CALCIUM 8.6 mg/dL (8.4-10.2); CARBON DIOXIDE 23 mmol/L (22-30); CHLORIDE 104 mmol/L (98-107); CHOLESTEROL 159.25 mg/dL (0-200); GLUCOSE 155 mg/dL (75-110); TRIGLYCERIDES 338 mg/dL (<150)
[2020-04-29 07:22] LABS: VLDL CHOLESTEROL 67.6 mg/dL (10-31)
[2020-04-29 07:23] LABS: POTASSIUM 2.9 mmol/L (3.6-5.0)
[2020-04-29 07:26] LABS: DIRECT LDL 79 mg/dL (<100)
[2020-04-29] MEDS: METFORMIN HCL 500 MG TABLET PO SCH ×2 (08:36→17:24)
[2020-04-29] MEDS: INSULIN REG, HUMAN 100 UNIT/ML 3 ML VIAL (PYX) SUBCUT PRN ×3 (08:37→17:25)
[2020-04-29] MEDS: BUDESONIDE NEB 0.5 MG/2 ML AMPUL NEB SCH (08:48)
[2020-04-29] MEDS ORDERED: (PENDING PHARMACY ID) (Losartan/Hydrochlorothiazide [Hyzaar 100-25 Tablet] 1 EACH) PO SCH (10:00)
[2020-04-29] MEDS ORDERED: (PENDING PHARMACY ID) (Empagliflozin [Jardiance] 25 MG) PO SCH (10:00)
[2020-04-29] MEDS ORDERED: (PENDING PHARMACY ID) (Bupropion Hcl [Bupropion Xl] 300 MG) PO SCH (10:00)
[2020-04-29] MEDS: AMLODIPINE BESYLATE 10 MG TABLET PO SCH (10:41)
[2020-04-29] MEDS: HYDROCHLOROTHIAZIDE 25 MG TABLET PO SCH (10:42)
[2020-04-29] MEDS: LOSARTAN POTASSIUM 50 MG TABLET PO SCH (10:42)
[2020-04-29] MEDS: DOCUSATE SODIUM 100 MG CAPSULE PO SCH ×2 (10:43→17:21)
[2020-04-29] MEDS ORDERED: POTASSIUM CHLORIDE 10 MEQ TABLET.ER PO ONE (10:45)
[2020-04-29] MEDS: NAPROXEN 250 MG TABLET PO SCH ×2 (10:45→17:22)
[2020-04-29] MEDS: CEFEPIME 1 GM/D5W RTU 1 GM/50 ML RTUPB IV SCH ×2 (10:46→21:54)
[2020-04-29] MEDS: TRIAMCINOLONE ACETONIDE 0.1% CREAM 15 GM TOP SCH ×2 (10:50→22:02)
[2020-04-29] MEDS: CLOTRIMAZOLE 1% CREAM 15 GM TOP SCH ×4 (10:50→22:02)
[2020-04-29] MEDS: CLONIDINE HCL 0.1 MG TABLET PO SCH (10:58)
[2020-04-29] MEDS: GLIPIZIDE 10 MG TABLET PO SCH (10:58)
[2020-04-29] MEDS: LAMOTRIGINE 100 MG TABLET PO SCH (10:58)
[2020-04-29] MEDS: MEGESTROL ACETATE 20 MG TABLET PO SCH (10:59)
--- NOTE | 2020-04-29 14:16 | PDOC PROGRESS REPORT ---
Subjective Progress Note for:: 04/29/20 Subjective:: Feeling better. Developed vaginal bleeding. She has missed her Megace for several days and this is what typically happens. She reports that her leg is feeling better. Reason For Visit: CELLULITIS RIGHT LOWER EXTREMITY Physical Exam Vital Signs: Temp Pulse Resp BP Pulse Ox 97.6 F 91 18 123/70 97 04/29/20 08:56 04/29/20 00:17 04/29/20 00:17 04/29/20 00:17 04/29/20 00:09 Intake & Output 04/28/20 04/29/20 04/30/20 06:59 06:59 06:59 Intake Total 50 3250 600 Output Total 350 Balance 50 2900 600 Weight 148.6 kg 148 kg General appearance: PRESENT: cooperative, mild distress, morbidly obese, well-developed Ear exam: PRESENT: normal external ear exam. ABSENT: bleeding, drainage Respiratory exam: PRESENT: clear to auscultation nathaly Cardiovascular exam: PRESENT: RRR, +S1, +S2 GI/Abdominal exam: PRESENT: other - Pendulous abdomen Rectal exam: PRESENT: deferred Extremities exam: PRESENT: joint swelling - Right ankle Skin exam: PRESENT: erythema - Still with marked erythema right leg. Results Laboratory Results: 04/29/20 05:50 04/29/20 05:50 04/29/20 04/29/20 04/29/20 05:50 05:50 05:50 WBC 6.8 RBC 3.58 L Hgb 11.5 L D Hct 32.8 L MCV 92 MCH 32.2 MCHC 35.1 RDW 14.7 H Plt Count 266 Sodium 137.1 Potassium 2.9 L* Chloride 104 Carbon Dioxide 23 Anion Gap 10 BUN 6 L Creatinine 0.39 L Est GFR ( Amer) > 60 Glucose 155 H Calcium 8.6 Magnesium 2.0 Triglycerides 338 H Cholesterol 159.25 LDL Cholesterol Direct 79 VLDL Cholesterol 67.6 H HDL Cholesterol 34 L TSH 4.28 Impressions: Venous Doppler Study 04/27/20 21:37 IMPRESSION: No evidence of right lower extremity DVT. Foot X-Ray 04/27/20 21:38 IMPRESSION: No acute fracture or dislocation is identified. Soft tissue swelling over the forefoot Ankle X-Ray 04/27/20 21:39 IMPRESSION: No acute osseous abnormality. copyright 2011 [employer]- All Rights Reserved Tibia/Fibula X-Ray 04/27/20 21:39 IMPRESSION: No acute osseous abnormality copyright 2010 [employer]- All Rights Reserved PICC Line Insertion 04/28/20 00:00 IMPRESSION: SUCCESSFUL PLACEMENT OF A 5 FR DUAL LUMEN 42 CM PICC IN THE RIGHT BASILIC VEIN. Assessment and Plan - Diagnosis (1) Cellulitis of right lower extremity Is this a current diagnosis for this admission?: Yes Plan: Continue cefepime and vancomycin. Leg is still erythematous and tender. She admits that it hurts less when she ambulates. (2) Leg pain, right Is this a current diagnosis for this admission?: Yes Plan: Slowly improving with antibiotic therapy (3) Hyperglycemia due to type 2 diabetes mellitus Qualifiers: Diabetes mellitus buttermaker continuous churn insulin use: with buttermaker continuous churn use Qualified Code(s): E11.65 - Type 2 diabetes mellitus with hyperglycemia; Z79.4 - buttermaker continuous churn (current) use of insulin Is this a current diagnosis for this admission?: Yes Plan: Less than adequate control. Will increase Lantus and continue other medic ations. (4) Hypokalemia Is this a current diagnosis for this admission?: Yes Plan: Increase potassium supplement and monitor serum potassium levels (5) Anxiety and depression Is this a current diagnosis for this admission?: Yes Plan: Continue Xanax, Lamictal and bupropion (6) Chronic gastroesophageal reflux disease Is this a current diagnosis for this admission?: Yes Plan: Continue proton pump inhibitor (Protonix 40 mg daily) (7) Hypertension Qualifiers: Hypertension type: essential hypertension Qualified Code(s): I10 - Essential (primary) hypertension Is this a current diagnosis for this admission?: Yes Plan: Continue current medications as she has adequate blood pressure control. (8) Hypothyroid Qualifiers: Hypothyroidism type: unspecified Qualified Code(s): E03.9 - Hypothyroidism, unspecified Is this a current diagnosis for this admission?: Yes Plan: Continue levothyroxine at 88 mcg daily (9) Morbid obesity with BMI of 50.0-59.9, adult Is this a current diagnosis for this admission?: Yes Plan: Encourage aggressive dietary management (10) Obstructive sleep apnea Is this a current diagnosis for this admission?: Yes Plan: CPAP if required but patient states she is not compliant with CPAP at home (11) Polycystic ovarian disease Is this a current diagnosis for this admission?: Yes Plan: Continue current management/treatment plan (12) Vaginal bleeding Is this a current diagnosis for this admission?: Yes Plan: Patient states that the Megace is actually for her vaginal bleeding. Will resume Megace. She states that she dropped it to 20 mg daily on her own. We will give 40 mg today and then 20 mg daily - Plan Summary Summary: Patient will be admitted to the medical floor where she received routine supportive and symptomatic cares. She will be given antibiotic therapy with vancomycin and cefepime administered intravenously. She will receive morphine sulfate 2 to 4 mg IV every 2 hours as needed for pain and Ativan 1 mg IV every 4 hours as needed for anxiety or restlessness. She will be continued on her usual home medications as soon as her medication list has been verified and reconcile d. Before meals and at bedtime Accu-Cheks to be performed with sliding scale insulin for hyperglycemia and a hypoglycemic protocol in place. Patient will be on a diabetic and cardiac restricted diet. - Time Time Spent with patient: 15-24 minutes Medications reviewed and adjusted accordingly: Yes Anticipated Discharge Disposition: Home, Self Care Anticipated Discharge Timeframe: within 72 hours
[2020-04-29] MEDS ORDERED: MEGESTROL ACETATE 20 MG TABLET PO ONE (15:30)
[2020-04-29] MEDS: POTASSIUM CHLORIDE 10 MEQ TABLET.ER PO SCH (21:54)
[2020-04-29] MEDS: INSULIN GLARGINE,HUM.REC.ANLOG 1,000 UNIT/10 ML VIAL SUBCUT SCH (21:55)
[2020-04-30] MEDS: VANCOMYCIN HCL 1,250 MG in DEXTROSE 5%-WATER 250 ML IV SCH ×3 (01:43→18:09)
[2020-04-30] MEDS: GABAPENTIN 300 MG CAPSULE PO SCH ×3 (06:09→22:24)
[2020-04-30] MEDS: HEPARIN SOD (PORCINE) 5,000 UNIT/ML 1 ML VIAL SUBCUT SCH ×3 (06:09→22:35)
[2020-04-30] MEDS: PANTOPRAZOLE SODIUM 40 MG TABLET.DR PO SCH (06:09)
[2020-04-30] MEDS: LEVOTHYROXINE SODIUM 0.088 MG TABLET PO SCH (06:09)
[2020-04-30] MEDS: METFORMIN HCL 500 MG TABLET PO SCH ×2 (08:05→15:07)
[2020-04-30] MEDS: INSULIN REG, HUMAN 100 UNIT/ML 3 ML VIAL (PYX) SUBCUT PRN ×3 (08:06→18:07)
[2020-04-30] MEDS ORDERED: FLUCONAZOLE 100 MG TABLET PO SCH (10:00)
[2020-04-30] MEDS ORDERED: ERGOCALCIFEROL (VITAMIN D2) 50000 UNIT (1.25 MG) CAPSULE PO SCH (10:00)
[2020-04-30] MEDS ORDERED: (PENDING PHARMACY ID) (Fluconazole [Diflucan] 150 MG) PO SCH (10:00)
[2020-04-30] MEDS: HYDROCHLOROTHIAZIDE 25 MG TABLET PO SCH (10:54)
[2020-04-30] MEDS: AMLODIPINE BESYLATE 10 MG TABLET PO SCH (10:55)
[2020-04-30] MEDS: LOSARTAN POTASSIUM 50 MG TABLET PO SCH (10:55)
[2020-04-30] MEDS: POTASSIUM CHLORIDE 10 MEQ TABLET.ER PO SCH ×2 (10:55→21:37)
[2020-04-30] MEDS: CLOTRIMAZOLE 1% CREAM 15 GM TOP SCH ×4 (10:56→22:35)
[2020-04-30] MEDS: TRIAMCINOLONE ACETONIDE 0.1% CREAM 15 GM TOP SCH ×2 (10:56→22:33)
[2020-04-30] MEDS: DOCUSATE SODIUM 100 MG CAPSULE PO SCH ×2 (10:57→18:07)
[2020-04-30] MEDS: NAPROXEN 250 MG TABLET PO SCH ×2 (10:57→18:08)
[2020-04-30] MEDS: CLONIDINE HCL 0.1 MG TABLET PO SCH (10:58)
[2020-04-30] MEDS: GLIPIZIDE 10 MG TABLET PO SCH (10:58)
[2020-04-30] MEDS: LAMOTRIGINE 100 MG TABLET PO SCH (10:58)
[2020-04-30] MEDS: CEFEPIME 1 GM/D5W RTU 1 GM/50 ML RTUPB IV SCH ×2 (11:00→22:24)
[2020-04-30] MEDS: MEGESTROL ACETATE 20 MG TABLET PO SCH (11:00)
[2020-04-30 13:05] LABS: VANCOMYCIN,TROUGH 8.5 ug/mL (5.0-20.0)
--- NOTE | 2020-04-30 15:08 | PDOC PROGRESS REPORT ---
Subjective Progress Note for:: 04/30/20 Reason For Visit: CELLULITIS RIGHT LOWER EXTREMITY Physical Exam Vital Signs: Temp Pulse Resp BP Pulse Ox 97.6 F 77 17 104/60 98 04/30/20 08:11 04/30/20 07:40 04/30/20 07:40 04/30/20 07:40 04/30/20 07:40 Intake & Output 04/29/20 04/30/20 05/01/20 06:59 06:59 06:59 Intake Total 3250 3500 970 Output Total 350 Balance 2900 3500 970 Weight 148 kg 148 kg Results Laboratory Results: 04/29/20 05:50 04/29/20 05:50 Impressions: Venous Doppler Study 04/27/20 21:37 IMPRESSION: No evidence of right lower extremity DVT. Foot X-Ray 04/27/20 21:38 IMPRESSION: No acute fracture or dislocation is identified. Soft tissue swelling over the forefoot Ankle X-Ray 04/27/20 21:39 IMPRESSION: No acute osseous abnormality. copyright 2010 [employer]- All Rights Reserved Tibia/Fibula X-Ray 04/27/20 21:39 IMPRESSION: No acute osseous abnormality copyright 2010 [employer]- All Rights Reserved PICC Line Insertion 04/28/20 00:00 IMPRESSION: SUCCESSFUL PLACEMENT OF A 5 FR DUAL LUMEN 42 CM PICC IN THE RIGHT BASILIC VEIN. 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 jail use Qualified Code(s): E11.65 - Type 2 diabetes mellitus with hyperglycemia; Z79.4 - ad terminal makeup operator (current) use of insulin Is this a current diagnosis for this admission?: Yes (4) Hypokalemia Is this a current diagnosis for this admission?: Yes (5) Anxiety and depression Is this a current diagnosis for this admission?: Yes (6) Chronic gastroesophageal reflux disease Is this a current diagnosis for this admission?: Yes (7) Hypertension Qualifiers: Hypertension type: essential hypertension Qualified Code(s): I10 - Essential (primary) hypertension Is this a current diagnosis for this admission?: Yes (8) Hypothyroid Qualifiers: Hypothyroidism type: unspecified Qualified Code(s): E03.9 - Hypothyroidism, unspecified Is this a current diagnosis for this admission?: Yes (9) Morbid obesity with BMI of 50.0-59.9, adult Is this a current diagnosis for this admission?: Yes (10) Obstructive sleep apnea Is this a current diagnosis for this admission?: Yes (11) Polycystic ovarian disease Is this a current diagnosis for this admission?: Yes - Plan Summary Summary: Patient will be admitted to the medical floor where she received routine supportive and symptomatic cares. She will be given antibiotic therapy with vancomycin and cefepime administered intravenously. She will receive morphine sulfate 2 to 4 mg IV every 2 hours as needed for pain and Ativan 1 mg IV every 4 hours as needed for anxiety or restlessness. She will be continued on her usual home medications as soon as her medication list has been verified and reconciled. Before meals and at bedtime Accu-Cheks to be performed with sliding scale insulin for hyperglycemia and a hypoglycemic protocol in place. Patient will be on a diabetic and cardiac restricted diet.
[2020-04-30 18:36] LABS: VANCOMYCIN,TROUGH 10.3 ug/mL (5.0-20.0)
[2020-04-30] MEDS ORDERED: INSULIN GLARGINE,HUM.REC.ANLOG 1,000 UNIT/10 ML VIAL SUBCUT SCH (22:00)
--- NOTE | 2020-04-30 22:20 | PDOC PROGRESS REPORT ---
Subjective Progress Note for:: 04/30/20 Subjective:: The patient is feeling better. The leg is a darker color but appears to be resolving. She admits that she has less discomfort. Reason For Visit: CELLULITIS RIGHT LOWER EXTREMITY Physical Exam Vital Signs: Temp Pulse Resp BP Pulse Ox 98.1 F 83 16 113/59 L 98 04/30/20 19:46 04/30/20 19:46 04/30/20 19:46 04/30/20 19:46 04/30/20 19:46 Intake & Output 04/29/20 04/30/20 05/01/20 06:59 06:59 06:59 Intake Total 3250 3500 1570 Output Total 350 Balance 2900 3500 1570 Weight 148 kg 148 kg General appearance: PRESENT: no acute distress, cooperative, morbidly obese, well-developed Head exam: PRESENT: atraumatic, normocephalic Eye exam: PRESENT: conjunctiva pink. ABSENT: scleral icterus Ear exam: PRESENT: normal external ear exam. ABSENT: bleeding, drainage Mouth exam: PRESENT: moist, tongue midline Respiratory exam: PRESENT: clear to auscultation nathaly, symmetrical, unlabored. ABSENT: prolonged expiratory phas, rales, rhonchi, tachypnea, wheezes Cardiovascular exam: PRESENT: RRR, +S1, +S2. ABSENT: bradycardia, diastolic murmur, irregular rhythm, systolic murmur, tachycardia GI/Abdominal exam: PRESENT: normal bowel sounds, soft, other - Pendulous abdomen. ABSENT: guarding, tenderness Rectal exam: PRESENT: deferred Gentrourinary exam: ABSENT: indwelling catheter Extremities exam: PRESENT: joint swelling - Right ankle still puffy Musculoskeletal exam: PRESENT: ambulatory. ABSENT: deformity, dislocation Neurological exam: PRESENT: alert, awake, oriented to person, oriented to place, oriented to time, oriented to situation, CN II-XII grossly intact. ABSENT: altered, motor sensory deficit Psychiatric exam: PRESENT: appropriate affect, normal mood. ABSENT: agitated, anxious Focused psych exam: ABSENT: delusional, paranoid, restlessness Skin exam: PRESENT: dry, erythema - Erythema on the right lower leg appears to be coalescing. Is a deeper red and appears to be healing., warm Results Laboratory Results: 04/29/20 05:50 04/29/20 05:50 Impressions: Venous Doppler Study 04/27/20 21:37 IMPRESSION: No evidence of right lower extremity DVT. Foot X-Ray 04/27/20 21:38 IMPRESSION: No acute fracture or dislocation is identified. Soft tissue swelling over the forefoot Ankle X-Ray 04/27/20 21:39 IMPRESSION: No acute osseous abnormality. copyright 2010 [employer]- All Rights Reserved Tibia/Fibula X-Ray 04/27/20 21:39 IMPRESSION: No acute osseous abnormality copyright 2010 [employer]- All Rights Reserved PICC Line Insertion 04/28/20 00:00 IMPRESSION: SUCCESSFUL PLACEMENT OF A 5 FR DUAL LUMEN 42 CM PICC IN THE RIGHT BASILIC VEIN. 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 Continue Accu-Cheks and sliding scale coverage as well as her other oral medications. (4) Hypokalemia Is this a current diagnosis for this admission?: Yes Plan: Increase potassium supplement and recheck electrolytes tomorrow (5) Anxiety and depression Is this a current diagnosis for this admission?: Yes Plan: Continue current regimen. As we do not have the extended release bupropion it is temporarily on hold but the patient does not seem adversely affected (6) Chronic gastroesophageal reflux disease Is this a current diagnosis for this admission?: Yes Plan: Continue proton pump inhibitor (Protonix 40 mg daily) (7) Hypertension Qualifiers: Hypertension type: essential hypertension Qualified Code(s): I10 - Essential (primary) hypertension Is this a current diagnosis for this admission?: Yes Plan: Continue amlodipine, clonidine, losartan and hydrochlorothiazide. Good blood pr essure control. (8) Hypothyroid Qualifiers: Hypothyroidism type: unspecified Qualified Code(s): E03.9 - Hypothyroidism, unspecified Is this a current diagnosis for this admission?: Yes Plan: Continue levothyroxine at 88 mcg daily (9) Morbid obesity with BMI of 50.0-59.9, adult Is this a current diagnosis for this admission?: Yes Plan: Encourage aggressive dietary management. Polycystic ovarian disease does tend toward obesity. (10) Obstructive sleep apnea Is this a current diagnosis for this admission?: Yes Plan: CPAP if required but patient states she is not compliant with CPAP at home (11) Polycystic ovarian disease Is this a current diagnosis for this admission?: Yes Plan: Continue current management/treatment plan (12) Vaginal bleeding Is this a current diagnosis for this admission?: Yes Plan: Improved on Megace (13) Hypertriglyceridemia Is this a current diagnosis for this admission?: Yes Plan: Triglycerides are over 300. Will discuss possibility of fib rate therapy for statin therapy - Plan Summary Summary: Patient will be admitted to the medical floor where she received routine supportive and symptomatic cares. She will be given antibiotic therapy with vancomycin and cefepime administered intravenously. She will receive morphine sulfate 2 to 4 mg IV every 2 hours as needed for pain and Ativan 1 mg IV every 4 hours as needed for anxiety or restlessness. She will be continued on her usual home medications as soon as her medication list has been verified and reconciled. Before meals and at bedtime Accu-Cheks to be performed with sliding scale insulin for hyperglycemia and a hypoglycemic protocol in place. Patient will be on a diabetic and cardiac restricted diet. - Time Time Spent with patient: 15-24 minutes Medications reviewed and adjusted accordingly: Yes Anticipated Discharge Disposition: Home, Self Care Anticipated Discharge Timeframe: within 24 hours
[2020-04-30] MEDS: TRAZODONE HCL 50 MG TABLET PO PRN (22:24)
[2020-04-30] MEDS: NORMAL SALINE 10 ML SDV (SCHEDULED) IV SCH (22:36)
[2020-05-01] MEDS: VANCOMYCIN HCL 1,250 MG in DEXTROSE 5%-WATER 250 ML IV SCH ×3 (02:50→17:30)
[2020-05-01] MEDS: HEPARIN SOD (PORCINE) 5,000 UNIT/ML 1 ML VIAL SUBCUT SCH ×3 (05:36→22:51)
[2020-05-01] MEDS: GABAPENTIN 300 MG CAPSULE PO SCH ×3 (05:36→22:53)
[2020-05-01] MEDS: LEVOTHYROXINE SODIUM 0.088 MG TABLET PO SCH (05:36)
[2020-05-01] MEDS: PANTOPRAZOLE SODIUM 40 MG TABLET.DR PO SCH (05:36)
[2020-05-01 06:17] LABS: ABSOLUTE EOSINOPHILS # (AUTO) 0.1 10^3/uL (0.0-0.6); ABSOLUTE MONOCYTES (AUTO) 0.4 10^3/uL (0.1-1.4); ABSOLUTE NEUT (AUTO) 3.1 10^3/uL (1.7-8.2); BASOPHILS % (AUTO) 0.6 % (0-2); EOSINOPHILS % (AUTO) 2.5 % (0-6); HEMATOCRIT 30.9 % (36.0-47.0); HEMOGLOBIN 10.8 g/dL (12.0-15.5); LYMPHOCYTES % (AUTO) 35.6 % (13-45); MEAN CORPUSCULAR HEMOGLOBIN 32.2 pg (27.0-33.4); MEAN CORPUSCULAR HGB CONC 34.8 g/dL (32.0-36.0); MEAN CORPUSCULAR VOLUME 93 fl (80-97); MONOCYTES % (AUTO) 7.2 % (3-13); PLATELET COUNT 292 10^3/uL (150-450); RED BLOOD COUNT 3.34 10^6/uL (3.72-5.28); RED CELL DISTRIBUTION WIDTH 14.5 % (11.5-14.0); SEGMENTED NEUTROPHILS % (AUTO) 54.1 % (42-78); TOTAL CELLS COUNTED % (AUTO) 100 %; WHITE BLOOD COUNT 5.7 10^3/uL (4.0-10.5)
[2020-05-01 06:41] LABS: ANION GAP 6 (5-19); BLOOD UREA NITROGEN 8 mg/dL (7-20); CALCIUM 8.3 mg/dL (8.4-10.2); CARBON DIOXIDE 24 mmol/L (22-30); CHLORIDE 106 mmol/L (98-107); GLUCOSE 231 mg/dL (75-110); POTASSIUM 4.1 mmol/L (3.6-5.0)
[2020-05-01] MEDS: METFORMIN HCL 500 MG TABLET PO SCH ×2 (08:24→17:29)
[2020-05-01] MEDS: INSULIN REG, HUMAN 100 UNIT/ML 3 ML VIAL (PYX) SUBCUT PRN ×3 (08:25→17:27)
[2020-05-01] MEDS: CLONIDINE HCL 0.1 MG TABLET PO SCH (09:38)
[2020-05-01] MEDS: LOSARTAN POTASSIUM 50 MG TABLET PO SCH (09:39)
[2020-05-01] MEDS: DOCUSATE SODIUM 100 MG CAPSULE PO SCH ×2 (09:39→17:29)
[2020-05-01] MEDS: GLIPIZIDE 10 MG TABLET PO SCH (09:40)
[2020-05-01] MEDS: HYDROCHLOROTHIAZIDE 25 MG TABLET PO SCH (09:40)
[2020-05-01] MEDS: POTASSIUM CHLORIDE 10 MEQ TABLET.ER PO SCH ×2 (09:41→22:53)
[2020-05-01] MEDS: LAMOTRIGINE 100 MG TABLET PO SCH (09:42)
[2020-05-01] MEDS: AMLODIPINE BESYLATE 10 MG TABLET PO SCH (09:42)
[2020-05-01] MEDS: NAPROXEN 250 MG TABLET PO SCH ×2 (09:42→17:28)
[2020-05-01] MEDS: CEFEPIME 1 GM/D5W RTU 1 GM/50 ML RTUPB IV SCH ×2 (09:47→22:52)
[2020-05-01] MEDS: MEGESTROL ACETATE 20 MG TABLET PO SCH (09:47)
[2020-05-01] MEDS: CLOTRIMAZOLE 1% CREAM 15 GM TOP SCH ×4 (09:48→23:14)
[2020-05-01] MEDS: TRIAMCINOLONE ACETONIDE 0.1% CREAM 15 GM TOP SCH ×2 (09:49→23:14)
[2020-05-01] MEDS: NORMAL SALINE 10 ML SDV (SCHEDULED) IV SCH ×2 (09:50→22:54)
[2020-05-01] MEDS: NORMAL SALINE 10 ML SDV (AFTER EACH USE) IV PRN ×3 (11:44→19:30)
--- NOTE | 2020-05-01 12:20 | PDOC PROGRESS REPORT ---
Subjective Progress Note for:: 05/01/20 Subjective:: The patient pointed out a new raised area on the proximal end of the cellulitis. It is in the posterior lateral position. It is raised with an uneven surface. No blistering or drainage. It is very warm to the touch. The patient is still having pain in that right leg. Reason For Visit: CELLULITIS RIGHT LOWER EXTREMITY Physical Exam Vital Signs: Temp Pulse Resp BP Pulse Ox 97.7 F 83 17 116/61 99 05/01/20 11:09 05/01/20 11:09 05/01/20 11:09 05/01/20 11:09 05/01/20 11:09 Intake & Output 04/30/20 05/01/20 05/02/20 06:59 06:59 06:59 Intake Total 3500 2600 540 Balance 3500 2600 540 Weight 148 kg 151.9 kg General appearance: PRESENT: mild distress, morbidly obese Head exam: PRESENT: atraumatic, normocephalic Ear exam: PRESENT: normal external ear exam. ABSENT: bleeding, drainage Mouth exam: PRESENT: moist, tongue midline Respiratory exam: PRESENT: clear to auscultation nathaly, symmetrical, unlabored. ABSENT: rales, rhonchi, tachypnea, wheezes Cardiovascular exam: PRESENT: RRR, +S1, +S2. ABSENT: bradycardia, diastolic murmur, irregular rhythm, systolic murmur, tachycardia GI/Abdominal exam: PRESENT: normal bowel sounds, soft, other - Pendulous abdomen. ABSENT: distended, tenderness Rectal exam: PRESENT: deferred Gentrourinary exam: ABSENT: indwelling catheter Extremities exam: PRESENT: calf tenderness, pedal edema - Especially right foot and ankle Musculoskeletal exam: PRESENT: ambulatory. ABSENT: deformity, dislocation Neurological exam: PRESENT: alert Psychiatric exam: PRESENT: appropriate affect. ABSENT: agitated, anxious Focused psych exam: ABSENT: delusional, paranoid, restlessness Skin exam: PRESENT: erythema, warm, other Results Laboratory Results: 05/01/20 05:45 05/01/20 05:45 05/01/20 05/01/20 05:45 05:45 WBC 5.7 RBC 3.34 L Hgb 10.8 L Hct 30.9 L MCV 93 MCH 32.2 MCHC 34.8 RDW 14.5 H Plt Count 292 Seg Neutrophils % 54.1 Sodium 135.7 L Potassium 4.1 Chloride 106 Carbon Dioxide 24 Anion Gap 6 BUN 8 Creatinine 0.37 L Est GFR ( Amer) > 60 Glucose 231 H Calcium 8.3 L Impressions: Venous Doppler Study 04/27/20 21:37 IMPRESSION: No evidence of right lower extremity DVT. Foot X-Ray 04/27/20 21:38 IMPRESSION: No acute fracture or dislocation is identified. Soft tissue swelling over the forefoot Ankle X-Ray 04/27/20 21:39 IMPRESSION: No acute osseous abnormality. copyright 2010 [employer]- All Rights Reserved Tibia/Fibula X-Ray 04/27/20 21:39 IMPRESSION: No acute osseous abnormality copyright 2010 [employer]- All Rights Reserved PICC Line Insertion 04/28/20 00:00 IMPRESSION: SUCCESSFUL PLACEMENT OF A 5 FR DUAL LUMEN 42 CM PICC IN THE RIGHT BASILIC VEIN. Assessment and Plan - Diagnosis (1) Cellulitis of right lower extremity Is this a current diagnosis for this admission?: Yes Plan: Remains on antibiotic therapy. The development of this new welt-like lesion despite ongoing therapy. It is not bullous in nature. It is hard to know if this is a vasculitis type lesion or related to infection. She has triamcinolone cream ordered I have asked that they applied to this lesion in addition to provide cool packs. This will delay her discharge as I am wary of sending her home with a new complication. Will reassess tomorrow. (2) Leg pain, right Is this a current diagnosis for this admission?: Yes Plan: Secondary to cellulitis. She is walking better but it still hurts. May need a front wheel walker at home. 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 This could be due to the acute illness. Continue current regimen including Accu-Cheks and sliding scale coverage. (4) Hypokalemia Is this a current diagnosis for this admission?: Yes Plan: Resolved with supplement potassium. Continue to monitor electrolytes. (5) Anxiety and depression Is this a current diagnosis for this admission?: Yes Plan: Continue Xanax and Lamictal. No acute decompensation noted. (6) Chronic gastroesophageal reflux disease Is this a current diagnosis for this admission?: Yes Plan: Continue proton pump inhibitor therapy. Currently on pantoprazole. (7) Hypertension Qualifiers: Hypertension type: essential hypertension Qualified Code(s): I10 - Essential (primary) hypertension Is this a current diagnosis for this admission?: Yes Plan: Excellent blood pressure control. Continue current treatment regimen. (8) Hypothyroid Qualifiers: Hypothyroidism type: unspecified Qualified Code(s): E03.9 - Hypothyroidism, unspecified Is this a current diagnosis for this admission?: Yes Plan: Continue levothyroxine (9) Morbid obesity with BMI of 50.0-59.9, adult Is this a current diagnosis for this admission?: Yes Plan: Encourage aggressive diet management and subsequently initiate exercise regimen. (10) Obstructive sleep apnea Is this a current diagnosis for this admission?: Yes Plan: Resume CPAP at home (11) Polycystic ovarian disease Is this a current diagnosis for this admission?: Yes Plan: Continue to follow-up with endocrinology (12) Vaginal bleeding Is this a current diagnosis for this admission?: Yes Plan: Appears improved with resumption of Megace (13) Hypertriglyceridemia Is this a current diagnosis for this admission?: Yes Plan: Treatment can be initiated as an outpatient. She should discuss with her manual winder. Possibly a [facility] candidate and/or statin therapy. - Plan Summary Summary: Patient will be admitted to the medical floor where she received routine supportive and symptomatic cares. She will be given antibiotic therapy with vancomycin and cefepime administered intravenously. She will receive morphine sulfate 2 to 4 mg IV every 2 hours as needed for pain and Ativan 1 mg IV every 4 hours as needed for anxiety or restlessness. She will be continued on her usual home medications as soon as her medication list has been verified and reconciled. Before meals and at bedtime Accu-Cheks to be performed with sliding scale insulin for hyperglycemia and a hypoglycemic protocol in place. Patient will be on a diabetic and cardiac restricted diet. - Time Time Spent with patient: 15-24 minutes Medications reviewed and adjusted accordingly: Yes Anticipated Discharge Disposition: Home, Self Care Anticipated Discharge Timeframe: within 24 hours
[2020-05-01] MEDS ORDERED: INSULIN GLARGINE,HUM.REC.ANLOG 1,000 UNIT/10 ML VIAL SUBCUT SCH (22:00)
[2020-05-01] MEDS: TRAZODONE HCL 50 MG TABLET PO PRN (22:52)
[2020-05-02] MEDS: VANCOMYCIN HCL 1,250 MG in DEXTROSE 5%-WATER 250 ML IV SCH ×2 (02:56→09:34)
[2020-05-02] MEDS: PANTOPRAZOLE SODIUM 40 MG TABLET.DR PO SCH (05:25)
[2020-05-02] MEDS: GABAPENTIN 300 MG CAPSULE PO SCH ×2 (05:25→13:46)
[2020-05-02] MEDS: LEVOTHYROXINE SODIUM 0.088 MG TABLET PO SCH (05:25)
[2020-05-02] MEDS: HEPARIN SOD (PORCINE) 5,000 UNIT/ML 1 ML VIAL SUBCUT SCH ×2 (05:25→13:46)
[2020-05-02] MEDS: METFORMIN HCL 500 MG TABLET PO SCH (08:02)
[2020-05-02] MEDS: INSULIN REG, HUMAN 100 UNIT/ML 3 ML VIAL (PYX) SUBCUT PRN ×2 (08:03→12:07)
[2020-05-02] MEDS: CEFEPIME 1 GM/D5W RTU 1 GM/50 ML RTUPB IV SCH (09:33)
[2020-05-02] MEDS: LOSARTAN POTASSIUM 50 MG TABLET PO SCH (09:35)
[2020-05-02] MEDS: POTASSIUM CHLORIDE 10 MEQ TABLET.ER PO SCH (09:35)
[2020-05-02] MEDS: AMLODIPINE BESYLATE 10 MG TABLET PO SCH (09:36)
[2020-05-02] MEDS: MEGESTROL ACETATE 20 MG TABLET PO SCH (09:36)
[2020-05-02] MEDS: GLIPIZIDE 10 MG TABLET PO SCH (09:37)
[2020-05-02] MEDS: CLONIDINE HCL 0.1 MG TABLET PO SCH (09:37)
[2020-05-02] MEDS: NAPROXEN 250 MG TABLET PO SCH (09:37)
[2020-05-02] MEDS: LAMOTRIGINE 100 MG TABLET PO SCH (09:37)
[2020-05-02] MEDS: HYDROCHLOROTHIAZIDE 25 MG TABLET PO SCH (09:40)
[2020-05-02] MEDS: DOCUSATE SODIUM 100 MG CAPSULE PO SCH (09:40)
[2020-05-02] MEDS: NORMAL SALINE 10 ML SDV (AFTER EACH USE) IV PRN ×2 (09:43→11:52)
[2020-05-02] MEDS: CLOTRIMAZOLE 1% CREAM 15 GM TOP SCH ×2 (09:43→13:45)
[2020-05-02] MEDS: TRIAMCINOLONE ACETONIDE 0.1% CREAM 15 GM TOP SCH (09:43)
[2020-05-02] MEDS: NORMAL SALINE 10 ML SDV (SCHEDULED) IV SCH (09:43)
[2020-05-02 14:16] VITALS: BP 103/61
--- NOTE | 2020-05-06 08:25 | PDOC DISCHARGE SUMMARY ---
Impression - Admit/DC Date/PCP Admission Date/Primary Care Provider: 04/28/20 06:43 JAQUAN COOPER DO Discharge Date: 05/02/20 - Additional Information Resuscitation Status: Full Code Discharge Diet: Diabetic Discharge Activity: Activity As Tolerated, Balance Activity w/Rest, Other Referrals: JAQUAN COOPER DO [Primary Care Provider] - 05/10/20 11:00 am () Prescriptions: Hydrocortisone [Hydrocortisone 1% Cream 28.35 gm] 1 applic TP Q8HP PRN #1 tube PRN Reason: Itching Cephalexin Monohydrate [Keflex 500 mg Capsule] 500 mg PO QID #20 capsule Nicotine [Nicoderm 21 mg/24 Hr Transderm Patch] 1 each TD DAILYP PRN #30 patch.td24 PRN Reason: Home Medications: Esomeprazole Magnesium [Nexium] 40 mg PO Q6AM 07/14/14 Amlodipine Besylate [Norvasc 10 mg Tablet] 10 mg PO DAILY 12/22/14 Losartan/Hydrochlorothiazide [Hyzaar 100-25 Tablet] 1 each PO DAILY 12/22/14 Alprazolam [Xanax] 2 mg PO TIDP PRN 04/28/20 Bupropion HCl [Bupropion Xl] 300 mg PO DAILY 04/28/20 Clonidine HCl [Catapres 0.1 mg Tablet] 0.1 mg PO DAILY 04/28/20 Clotrimazole 1% Cream [Lotrimin 1% Cream 15 gm] 1 applic TOP QID 04/28/20 Empagliflozin [Jardiance] 25 mg PO DAILY 04/28/20 Ergocalciferol (Vitamin D2) [Drisdol 50,000 unit (1.25MG) Capsule] 50,000 unit PO GARCES@1000 04/28/20 Fluconazole [Diflucan] 150 mg PO GARCES@1000 04/28/20 Gabapentin [Neurontin 300 mg Capsule] 300 mg PO Q8 04/28/20 Glipizide [Glucotrol 10 mg Tablet] 10 mg PO DAILY 04/28/20 Hydrocodone/Acetaminophen [[place] 10-325 mg Tablet] 1 tab PO QIDP PRN 04/28/20 Insulin Glargine,Hum.rec.anlog [Lantus Insulin 100 Unit/1 ml 10 ml] 40 units SQ QPM 04/28/20 Lamotrigine [Lamictal 100 mg Tablet] 100 mg PO DAILY 04/28/20 Levothyroxine Sodium [Synthroid 0.088 mg Tablet] 0.088 mg PO Q6AM 04/28/20 Megestrol Acetate [Megace 20 mg Tablet] 20 mg PO DAILY 04/28/20 Metformin HCl [Glucophage 500 mg Tablet] 500 mg PO BIDACBS 04/28/20 Naproxen [Naprosyn] 500 mg PO BID 04/28/20 Prazosin HCl [Minipress] 2 mg PO QHS 04/28/20 Semaglutide [Ozempic] 1 mg INJ GARCES@1000 04/28/20 Triamcinolone Acetonide [Aristocort 0.1% Cream] 1 applic TOP BID 04/28/20 Acetaminophen [Tylenol 325 mg Tablet] 650 mg PO Q4HP PRN tablet 05/02/20 Cephalexin Monohydrate [Keflex 500 mg Capsule] 500 mg PO QID #20 capsule 05/02/20 Hydrocortisone [Hydrocortisone 1% Cream 28.35 gm] 1 applic TP Q8HP PRN #1 tube 05/02/20 Nicotine [Nicoderm 21 mg/24 Hr Transderm Patch] 1 each TD DAILYP PRN #30 patch.td24 05/02/20 History of Present Illiness History of Present Illness: Per H&P by Dr. Martin: EDEN CM is a 55 year old female who presented the emergency room with a one-week history of pain in her right lower extremity. She experienced a fall after tripping and bruised the right side of her leg 1 week ago. 3 days later she noted redness and swelling with pain to touch involving her right ankle, worsened by movement of her right lower leg and foot. The redness and swelling have continued to increase over the last 3 days and have become more painful. She was treated with oral Keflex by her primary care provider without improvement. Her right lower extremity pain has been accompanied by a low-grade fever at home and has been associated with episodic diaphoresis. She admits prior similar episodes. She has not identified any additional aggravating or ameliorating factors for her pain. In the emergency room she was found to have an essentially unremarkable laboratory evaluation however clinically she showed evidence of cellulitis and she is unable to bear weight on her right lower extremity and has no one to help her at home. Patient was subsequently admitted to the hospital for further evaluation and treatment. Hospital Course Hospital Course: (1) Cellulitis of right lower extremity Patient was empirically placed on IV vancomycin and cefepime. Blood cultures have no growth at 5 days. Rash continues to improve. She is discharged on p.o. Keflex. Day prior to discharge, the patient reported the development of a 1.5 cm cluster of small vesicles to the right lateral leg; he did not increase in size or change in appearance over 24-hour observation. And so she is discharged home with recommendations to apply topical hydrocortisone cream. On retrospect, patient believes that she had a small lesion here that preceded her foot edema and erythema by approximately 24 hours. She does report that she was walking through tall grass and fell which raises the possibility of a poison beatriz/poison oak type exposure that precipitated her cellulitis. (2) Leg pain, right Secondary to cellulitis. (3) Hyperglycemia due to type 2 diabetes mellitus Uncontrolled diabetes mellitus; hemoglobin A1c 9.7%. Managed with sliding scale insulin while admitted. Dietary and medication compliance encouraged. Increase physical activity and weight loss strongly encouraged. Resume home medication regiment at discharge with close follow-up with endocrinology. (4) Hypokalemia Resolved with supplement potassium. (5) Anxiety and depression Continue Xanax and Lamictal. No acute decompensation noted. (6) Chronic gastroesophageal reflux disease Continue proton pump inhibitor therapy. Currently on pantoprazole. (7) Hypertension Excellent blood pressure control. Continue current treatment regimen. (8) Hypothyroid Continue levothyroxine (9) Morbid obesity with BMI of 50.0-59.9, adult Encourage aggressive diet management and subsequently initiate exercise regimen. (10) Obstructive sleep apnea CPAP (11) Polycystic ovarian disease Continue to follow-up with endocrinology (12) Vaginal bleeding Appears improved with resumption of Megace Outpatient follow up. (13) Hypertriglyceridemia Treatment can be initiated as an outpatient. She should discuss with her endoc rinologist. Possibly a [facility] candidate and/or statin therapy. Physical Exam Vital Signs: Temp Pulse Resp BP Pulse Ox 98.1 F 81 22 H 103/61 99 05/02/20 14:11 05/02/20 14:11 05/02/20 14:11 05/02/20 14:11 05/02/20 14:11 General appearance: PRESENT: no acute distress, disheveled, morbidly obese, well-developed, well-nourished Head exam: PRESENT: atraumatic, normocephalic Eye exam: PRESENT: conjunctiva pink, EOMI, PERRLA. ABSENT: scleral icterus Mouth exam: PRESENT: moist, tongue midline Respiratory exam: PRESENT: clear to auscultation nathaly, symmetrical, unlabored. ABSENT: rales, rhonchi, wheezes Cardiovascular exam: PRESENT: RRR. ABSENT: diastolic murmur, rubs, systolic murmur Pulses: PRESENT: normal dorsalis pedis pul Vascular exam: PRESENT: normal capillary refill Extremities exam: PRESENT: full ROM, pedal edema - Right foot. ABSENT: calf tenderness, clubbing Neurological exam: PRESENT: alert, awake, oriented to person, oriented to place, oriented to time, oriented to situation, CN II-XII grossly intact. ABSENT: motor sensory deficit Psychiatric exam: PRESENT: anxious, appropriate affect, normal mood. ABSENT: homicidal ideation, suicidal ideation Skin exam: PRESENT: dry, erythema - Right lower extremity patchy areas of mild erythema to anterior and lateral lower leg. A small cluster (1.5 cm round) of vesicles noted to the lateral leg similar in appearance to poison beatriz type rash, warm. ABSENT: cyanosis, rash Results Laboratory Results: WBC 5.7 10^3/uL (4.0-10.5) 05/01/20 05:45 RBC 3.34 10^6/uL (3.72-5.28) L 05/01/20 05:45 Hgb 10.8 g/dL (12.0-15.5) L 05/01/20 05:45 Hct 30.9 % (36.0-47.0) L 05/01/20 05:45 MCV 93 fl (80-97) 05/01/20 05:45 MCH 32.2 pg (27.0-33.4) 05/01/20 05:45 MCHC 34.8 g/dL (32.0-36.0) 05/01/20 05:45 RDW 14.5 % (11.5-14.0) H 05/01/20 05:45 Plt Count 292 10^3/uL (150-450) 05/01/20 05:45 Lymph % (Auto) 35.6 % (13-45) 05/01/20 05:45 Cross % (Auto) 7.2 % (3-13) 05/01/20 05:45 Eos % (Auto) 2.5 % (0-6) 05/01/20 05:45 Baso % (Auto) 0.6 % (0-2) 05/01/20 05:45 Absolute Neuts (auto) 3.1 10^3/uL (1.7-8.2) 05/01/20 05:45 Absolute Lymphs (auto) 2.0 10^3/uL (0.5-4.7) 05/01/20 05:45 Absolute Monos (auto) 0.4 10^3/uL (0.1-1.4) 05/01/20 05:45 Absolute Eos (auto) 0.1 10^3/uL (0.0-0.6) 05/01/20 05:45 Absolute Basos (auto) 0.0 10^3/uL (0.0-0.2) 05/01/20 05:45 Seg Neutrophils % 54.1 % (42-78) 05/01/20 05:45 Sodium 135.7 mmol/L (137-145) L 05/01/20 05:45 Potassium 4.1 mmol/L (3.6-5.0) 05/01/20 05:45 Chloride 106 mmol/L (98-107) 05/01/20 05:45 Carbon Dioxide 24 mmol/L (22-30) 05/01/20 05:45 Anion Gap 6 (5-19) 05/01/20 05:45 BUN 8 mg/dL (7-20) 05/01/20 05:45 Creatinine 0.37 mg/dL (0.52-1.25) L 05/01/20 05:45 Est GFR ( Amer) > 60 (>60) 05/01/20 05:45 Est GFR (MDRD) Non-Af > 60 (>60) 05/01/20 05:45 Glucose 231 mg/dL (75-110) H 05/01/20 05:45 POC Glucose 352 mg/dL (70-110) H 05/02/20 11:31 Hemoglobin A1c % 9.7 % (4.7-6.0) H 04/29/20 05:50 Lactic Acid 1.3 mmol/L (0.7-2.1) 04/28/20 00:07 Calcium 8.3 mg/dL (8.4-10.2) L 05/01/20 05:45 Magnesium 2.0 mg/dL (1.6-2.3) 04/29/20 05:50 Total Bilirubin 1.5 mg/dL (0.2-1.3) H 04/28/20 00:07 Direct Bilirubin 0.1 mg/dL (0.0-0.4) 04/28/20 00:07 Neonat Total Bilirubin Not Reportable 04/28/20 00:07 Neonat Direct Bilirubin Not Reportable 04/28/20 00:07 Neonat Indirect Bili Not Reportable 04/28/20 00:07 AST 38 U/L (14-36) H 04/28/20 00:07 ALT 30 U/L (<35) 04/28/20 00:07 Alkaline Phosphatase 129 U/L (38-126) H 04/28/20 00:07 Total Protein 7.4 g/dL (6.3-8.2) 04/28/20 00:07 Albumin 4.2 g/dL (3.5-5.0) 04/28/20 00:07 Triglycerides 338 mg/dL (<150) H 04/29/20 05:50 Cholesterol 159.25 mg/dL (0-200) 04/29/20 05:50 LDL Cholesterol Direct 79 mg/dL (<100) 04/29/20 05:50 VLDL Cholesterol 67.6 mg/dL (10-31) H 04/29/20 05:50 HDL Cholesterol 34 mg/dL (>40) L 04/29/20 05:50 TSH 4.28 uIU/mL (0.47-4.68) 04/29/20 05:50 Time Trough Drawn 1731 04/30/20 17:31 Vancomycin Trough 10.3 ug/mL (5.0-20.0) 04/30/20 17:31 Impressions: Venous Doppler Study 04/27/20 21:37 IMPRESSION: No evidence of right lower extremity DVT. Foot X-Ray 04/27/20 21:38 IMPRESSION: No acute fracture or dislocation is identified. Soft tissue swelling over the forefoot Ankle X-Ray 04/27/20 21:39 IMPRESSION: No acute osseous abnormality. copyright 2011 [employer]- All Rights Reserved Tibia/Fibula X-Ray 04/27/20 21:39 IMPRESSION: No acute osseous abnormality copyright 2010 [employer]- All Rights Reserved PICC Line Insertion 04/28/20 00:00 IMPRESSION: SUCCESSFUL PLACEMENT OF A 5 FR DUAL LUMEN 42 CM PICC IN THE RIGHT BASILIC VEIN. Plan Plan of Treatment: Patient is discharged home in stable condition. She is advised follow-up with her primary care provider within 1 week. Complete full course of antibiotic therapy. Keep extremity elevated. Take medications as prescribed. Continue diabetic diet. Return to the emergency department as needed for concerning symptoms. Time Spent: Greater than 30 Minutes Stroke Is this a Stroke Patient?: No Acute Heart Failure - Is this a Heart Failure Patient?: No
== END 2020-05-02 14:36 | disposition home or self-care (01) | DRG 603 ==
LOC: ER 18:46 → EH 04-28 06:43 → 4W 04-28 17:25
PROVIDERS: ADMIT Emergency Medicine; ATTEND Registered Nurse
PROC: 02HV33Z Insertion of Infusion Device into Superior Vena Cava, Percutaneous Approach (ICD-10-PCS; principal; 2020-04-28)
PROC: B5181ZA Fluoroscopy of Superior Vena Cava using Low Osmolar Contrast, Guidance (ICD-10-PCS; 2020-04-28)
PROC: B548ZZA Ultrasonography of Superior Vena Cava, Guidance (ICD-10-PCS; 2020-04-28)
DX: L03.115 Cellulitis of right lower limb (principal); Z68.43 Body mass index [BMI] 50.0-59.9, adult; W01.0XXA Fall on same level from slipping, tripping and stumbling without subsequent striking against object, initial encounter; I10 Essential (primary) hypertension; G47.33 Obstructive sleep apnea (adult) (pediatric); E03.9 Hypothyroidism, unspecified; E28.2 Polycystic ovarian syndrome; Z60.2 Problems related to living alone; F32.9 Major depressive disorder, single episode, unspecified; E11.65 Type 2 diabetes mellitus with hyperglycemia; F41.9 Anxiety disorder, unspecified; K21.9 Gastro-esophageal reflux disease without esophagitis; E66.01 Morbid (severe) obesity due to excess calories; E11.40 Type 2 diabetes mellitus with diabetic neuropathy, unspecified; E87.6 Hypokalemia; E78.1 Pure hyperglyceridemia; Z79.4 Long term (current) use of insulin; Z83.3 Family history of diabetes mellitus; Z82.49 Family history of ischemic heart disease and other diseases of the circulatory system; Z82.3 Family history of stroke; Z79.899 Other long term (current) drug therapy; Z79.84 Long term (current) use of oral hypoglycemic drugs
CPT/HCPCS: 36415; 36573; 80048; 80053; 80061; 80202; 82962; 83036; 83605; 83735; 84443; 85025; 85027; 87040; 93971; 94640; 96365; 99285; J0692; J1642; J1644; J1815; J3370; J3490; J7030; J7060